=== PATIENT | female | born 1955 | race Caucasian/White ===

== ENCOUNTER 2018-06-01 10:05 | Outpatient (CLI) | payer MEDICARE, OTHER | END 2018-06-01 10:06 | disposition home or self-care (01) | LOC: BICMAMMO 10:05 | PROVIDERS: ATTEND Internal Medicine Rheumatology | DX: M81.0 Age-related osteoporosis without current pathological fracture (principal); M85.89 Other specified disorders of bone density and structure, multiple sites | CPT/HCPCS: 77080 ==

== ENCOUNTER 2018-07-10 15:38 | Emergency (ER) | payer MEDICARE, OTHER ==
[2018-07-10 16:06] LABS: Hemoglobin 13.4 g/dL (12.0-16.0); Mean Corpuscular HGB CONC 32.1 g/dL (32.0-36.0); Mean Corpuscular Hemoglobin 34.7 pg (27.0-31.0); Mean Platelet Volume 6.3 fL (7.4-10.4); Platelet Count 321 thou/uL (130-400); RBC Distribution Width 12.2 % (11.5-14.5); Red Blood Cell (RBC) Count 3.87 mill/uL (4.20-5.40); White Blood Cell (WBC) Count 16.5 thou/uL (4.8-10.8)
[2018-07-10 16:34] LABS: CKMB 1.6 ng/mL (0-6.6)
[2018-07-10 16:38] LABS: #Basophils 0.1 thou/uL (0.0-0.2); #Eosinphils 0.3 thou/uL (0.0-0.7); #Lymphocytes 2.5 thou/uL (1.20-3.40); #Monocytes 1.6 thou/uL (0.11-0.59); %Basophils 0.8 % (0.0-1.0); %Eosinophils 1.8 % (0.0-10.0); %Lymphocytes 14.9 % (21.0-51.0); %Monocytes 9.7 % (0.0-10.0); %Neutrophils 72.8 % (42.0-75.0); MDiff Complete? YES
[2018-07-10 16:39] LABS: Macrocytosis SLIGHT = 6-15 cells (100X) (0-5/hpf); PLT Morphology Comment Appears Adequate
[2018-07-10 16:40] LABS: Troponin I Less than 0.010 ng/mL (< 0.028)
[2018-07-10 16:48] LABS: ALT (SGPT) 19 U/L (8-55); AST (SGOT) 34 U/L (5-34); Albumin 3.7 g/dL (3.4-4.8); Alkaline Phosphatase 75 U/L (40-150); Anion Gap 13 mmol/L (10-20); BUN (Urea Nitrogen) 10 mg/dL (9.8-20.1); Bilirubin, Total 0.6 mg/dL (0.2-1.2); CK (CPK) 48 U/L (29-168); Calc. Creatinine Clearance 0 mL/min (70-130); Calcium 9.2 mg/dL (7.8-10.44); Carbon Dioxide 26 mmol/L (23-31); Chloride 100 mmol/L (98-107); Estimated GFR-MDRD 64; Globulin 3.8 g/dL (2.4-3.5); Glucose 162 mg/dL (80-115); Potassium 3.8 mmol/L (3.5-5.1); Protein, Total 7.5 g/dL (6.0-8.3); Sodium 135 mmol/L (136-145)
--- NOTE | 2018-07-10 16:51 | RAD ---
PORTABLE CHEST ONE VIEW: 07/10/2018 4:10 p.m. HISTORY: Chest pain. FINDINGS: The heart size is normal. The lungs are well expanded without focal areas of consolidation, pneumoth oraces, or pleural effusions. IMPRESSION: No radiographic evidence of acute cardiopulmonary process. POS: [facility]
[2018-07-10] MEDS ORDERED: Acetaminophen 500 MG TAB ONE (17:37)
[2018-07-10 19:33] LABS: Troponin I Less than 0.010 ng/mL (< 0.028)
== END 2018-07-10 19:47 | disposition home or self-care (01) ==
LOC: ERS 15:38
DX: M79.602 Pain in left arm (principal); R55 Syncope and collapse; E78.5 Hyperlipidemia, unspecified; Z87.891 Personal history of nicotine dependence; F41.9 Anxiety disorder, unspecified
CPT/HCPCS: 36415; 71045; 80053; 82553; 84484; 85025; 93005; 94760

== ENCOUNTER 2019-04-08 11:11 | Inpatient (IN) | payer MEDICARE, OTHER ==
[2019-04-08] MEDS ORDERED: Lorazepam 2 MG/ML VIAL ONE ×3 (11:35→18:14)
[2019-04-08] MEDS ORDERED: ISOVUE-370 76%-LOCM 1 ML ONE (11:44)
[2019-04-08] MEDS ORDERED: Iopamidol 370 76% 100 ML VIAL ONE (11:45)
[2019-04-08 12:04] LABS: Hemoglobin 12.5 g/dL (12.0-16.0); Mean Corpuscular HGB CONC 33.8 g/dL (32.0-36.0); Mean Corpuscular Hemoglobin 34.9 pg (27.0-31.0); Platelet Count 137 thou/uL (130-400); RBC Distribution Width 11.6 % (11.5-14.5); Red Blood Cell (RBC) Count 3.57 mill/uL (4.20-5.40)
[2019-04-08] MEDS ORDERED: Haloperidol Lactate 5 MG/ML VIAL ONE (12:10)
[2019-04-08 12:11] LABS: INR-International Normal Ratio 1.2; Prothrombin Time 15.4 SEC (12.0-14.7)
--- NOTE | 2019-04-08 12:17 | RAD ---
XR Chest 1 View Portable HISTORY: Fever, cough. COMPARISON: 07/10/2018 study FINDINGS: Heart size and mediastinum are within normal limits. The lungs are clear. No significant susi ny findings. IMPRESSION: Unremarkable supine chest.
[2019-04-08 12:19] LABS: ALT (SGPT) 10 U/L (8-55); AST (SGOT) 11 U/L (5-34); Albumin 3.4 g/dL (3.4-4.8); Alcohol Less than 10 mg/dL (Less than 10); Alkaline Phosphatase 104 U/L (40-150); Anion Gap 23 mmol/L (10-20); BUN (Urea Nitrogen) 8 mg/dL (9.8-20.1); Bilirubin, Total 0.8 mg/dL (0.2-1.2); Calc. Creatinine Clearance 0 mL/min (70-130); Calcium 8.1 mg/dL (7.8-10.44); Carbon Dioxide 23 mmol/L (23-31); Chloride 86 mmol/L (98-107); Estimated GFR-MDRD 78; Globulin 3.3 g/dL (2.4-3.5); Glucose 186 mg/dL (80-115); Potassium 3.4 mmol/L (3.5-5.1); Protein, Total 6.7 g/dL (6.0-8.3); Sodium 129 mmol/L (136-145)
[2019-04-08 12:21] LABS: Band 2 % (5-11); Lymphocytes 7 % (21-51); MDiff Complete? YES; Mean Platelet Volume 6.9 fL (7.4-10.4); Monocytes 3 % (0-10); Neutrophil 88 % (42-75); Platelet Morphology Comment Appears Adequate; White Blood Cell (WBC) Count 23.6 thou/uL (4.8-10.8)
[2019-04-08 12:29] LABS: Acetaminophen Less than 6.0 mcg/mL (10.0-30.0); Alcohol Less than 10 mg/dL (Less than 10); Salicylate Less than 8.0 mg/dL (15.0-30.0)
--- NOTE | 2019-04-08 12:56 | CT ---
CT Brain WO Con HISTORY: Altered mental status COMPARISON: None. FINDINGS: There is generalized ventricular and sulcal prominence. There are no signs of intracerebral hemorrhage or extra-axial fluid collections. The mastoid air cells are clear. There is mucosal changes within both maxillary sinuses and right ethmoid air cells. IMPRESSION: No acute intracranial abnormalities.
[2019-04-08 13:04] LABS: Protein, Urine (Dipstick) > or equal to 300 mg/dL (Neg-Trace)
[2019-04-08 13:07] LABS: Bilirubin Unable to Interpret (Negative); Blood, Urine Large (Negative); Clarity Opaque (Clear); Glucose, Urine (Dipstick) Unable to Interpret mg/dL (Negative); Leukocyte Large (Negative); Nitrite Unable to Interpret (Negative); Urobilinogen UNABLE TO INTERPRET mg/dL (0.2-1.0)
[2019-04-08 13:11] LABS: Amphetamine Not Detected (NotDetected); Barbiturates Screen Detected (NotDetected); Benzodiazepine Screen Not Detected (NotDetected); Cocaine Metabolite Screen Not Detected (NotDetected); Medtox Control Line Valid? VALID (VALID); Medtox Reader # READER 1; Methadone Not Detected (NotDetected); Methamphetamine Not Detected (NotDetected); Opiate Screen Not Detected (NotDetected); Oxycodone Screen Not Detected (NotDetected); Phencyclidine (PCP) Not Detected (NotDetected); THC/Cannabinoid Screen Not Detected (NotDetected); Tricyclic Screen Not Detected (NotDetected)
[2019-04-08] MEDS ORDERED: Sodium Chloride 0.9% 100 ML ONE (13:12)
[2019-04-08] MEDS ORDERED: Cefepime 2 GM VIAL ONE (13:12)
[2019-04-08 13:27] LABS: RBC/HPF GREATER THAN 50-TNTC HPF (0-3); WBC/HPF 21-50 HPF (0-3)
[2019-04-08 13:28] LABS: Bacteria/HPF Rare-Few HPF (None Seen); Hyaline Casts/LPF NONE SEEN LPF (0-3 Hyaline); Renal Epithelial 0-3 HPF (0-3); Squamous Epithelial 0-3 HPF (0-3); Transitional Epithelial 0-3 HPF (0-3)
--- NOTE | 2019-04-08 14:23 | CT ---
Exam: ABDOMEN CT WITHOUT CONTRAST PELVIC CT WITHOUT CONTRAST: HISTORY: Hematuria. FINDINGS: ABDOMEN CT: Lung bases are clear. Limited evaluation of the solid organs due to technique. Grossly no solid organ abnormality. Bilaterally no hydronephrosis, nephrolithiasis or perinephric fat stranding. Bilateral ureters have a normal caliber. No hydroureter, periureteral fat stranding or ureterolithiasis No gastrohepatic, retrocrural or periportal lymphadenopathy There is evidence of complex fluid tracking along both paracolic gutters. There is asymmetric abnorma l attenuation along the left iliopsoas complex. There is also abnormal fluid along the anterior mesentery. There is asymmetric edema involving the right abdominal rectus muscle. Limited evaluation of the alimentary canal by the lack of oral contrast. No evidence of high-grade susi wel obstruction or colonic obstruction. CT PELVIS: There is stranding of the presacral fat. There is abnormal attenuation and stranding of the perivesic ular region. Additionally, there is abnormal attenuation in the urinary bladder with attenuation coefficient of 25 Hounsfield units. There is abnormal fluid attenuation along both external iliac chains. There are no lytic or blastic lesions in the osseous structures. No evidence of a bony fracture. IMPRESSION: 1. Predominantly retroperitoneal complex fluid/possible hemorrhage. Etiology is uncertain. Possibilit y of a spontaneous retroperitoneal bleed or posttraumatic change is raised. 2. Abnormal attenuation within the urinary bladder in the perivesicular spaces. The possibility of h emorrhage is raised. Spontaneous bladder rupture is a consideration though a less favored alternative. 3. Further evaluation with postcontrast imaging is recommended. Results of study discussed with Dr. Elizondo. CODE CR. Transcribed Date/Time: 04/08/2019 2:29 PM
--- NOTE | 2019-04-08 15:27 | CT ---
CT ABDOMEN AND PELVIS: 04/08/2019 HISTORY: Hematuria. Abnormal noncontrast CT. TECHNIQUE: Multiple contiguous axial images were obtained in a CT of the abdomen and pelvis with IV contrast. C oronal reformats were performed. FINDINGS: Lower Chest: Within normal limits. Vessels: Normal caliber aorta Heart: Normal size. No pericardial fluid. ABDOMEN Portal vein: Patent. Gallbladder: No calcified gallstones. Normal caliber wall. Liver: Within normal limits. Pancreas: Within normal limits. Spleen: Within normal limits. Adrenals: Within normal limits. Kidneys: Within normal limits. Peritoneum: There is evidence of bilateral pericolic fluid. There is also fluid in the anterior low er abdominal mesentery, just deep to the rectus muscles. There is a small amount of fluid tracking along the left and right retroperitoneal region, anterior to both iliopsoas complexes. Bowel: Normal caliber. Mesentery and Retroperitoneum: No enlarged mesenteric or retroperitoneal lymph nodes. Abdominal Wall: Asymmetric edema involving the right abdominal rectus muscle. PELVIS Reproductive Organs: Complex fluid in the pelvis. Pelvis: Stranding of the perivesicular fat. Bladder: Asymmetric soft tissue attenuation along the base and right aspect of the urinary bladder. The possibility of a neoplastic process is raised. There is stranding of the urinary bladder, which may be due to bladder rupture, an infectious or inflammatory process, or posttraumatic change. Bones: Within normal limits. IMPRESSION: Redemonstration of complex fluid in the perivesicular region and retroperitoneum, as well as in the a nterior abdominal mesentery, just deep to the rectus muscles. Attenuation coefficient implies complex or hemorrhagic fluid. Etiology is uncertain; however, given abnormal attenuation of the righ t aspect of the urinary bladder, a vesicular pathology is favored. Etiology may be due to an infectious or inflammatory process. Spontaneous bladder rupture from neoplasm or trauma are differen tial considerations. Urology consultation is recommended Results of study discussed with Dr. Elizondo on 04/08/2019 at 3:24 p.m. CODE CR Transcribed Date/Time: 04/08/2019 4:05 PM
[2019-04-08 16:23] LABS: Lactic Acid 2.7 mmol/L (0.5-2.2)
[2019-04-08 16:32] LABS: Troponin I Less than 0.010 ng/mL (< 0.028)
--- NOTE | 2019-04-08 17:35 | CT ---
Exam: Pelvic CT scan with IV contrast: Exam includes some delayed images with contrast in the urinary bladder. Again noted is extensive extraperitoneal fat stranding and heterogeneous fluid density within the pel vis and extending into the lower abdominal retroperitoneal regions. The density of this fluid does not appear to be simple ascitic fluid raising concern for complicated fluid such as hemorrhage. There is some minimal thickening and altered attenuation in the inferior rectus muscles. This is in part related to the extraperitoneal fluid density which overlies this region. There is some minimal nonspe cific subcutaneous fat stranding in the anterior soft tissues. These images confirm the presence of a urinary bladder mass superiorly and on the right lateral aspec t of the bladder. There is no evidence for contrast extravasation from the bladder seen. IMPRESSION: Evidence for a superior and right-sided urinary bladder mass. No evidence for contrast extravasation from the urinary bladder. Persistent extensive extraperitoneal and retroperitoneal fluid in the pelvis and extending up into the lower abdomen retroperitoneal spaces, nonspecific but certainly the possibility that this represents extraperitoneal hemorrhage must be of primary concern. Findings discussed with Dr. Elizondo in the emergency room at 5:30 PM CODE CR
[2019-04-08] MEDS ORDERED: Lorazepam 2 MG/ML VIAL SLOW IVP PRN (18:54)
[2019-04-08] MEDS ORDERED: Acetaminophen 650 MG Suppository PR PRN (18:56)
[2019-04-08] MEDS ORDERED: Thiamine HCl 200 MG/2 ML VIAL IM SCH (19:00)
[2019-04-08 19:05] LABS: Folate (Folic Acid) 15.9 ng/mL (7.0-31.4)
[2019-04-08 19:11] LABS: Troponin I 0.019 ng/mL (< 0.028)
[2019-04-08 19:12] LABS: #Basophils 0.1 thou/uL (0.0-0.2); #Eosinphils 0.1 thou/uL (0.0-0.7); #Lymphocytes 3.4 thou/uL (1.20-3.40); #Monocytes 2.4 thou/uL (0.11-0.59); #Neutrophils 21.2 thou/uL (1.40-6.50); %Basophils 0.2 % (0.0-1.0); %Eosinophils 0.3 % (0.0-10.0); %Lymphocytes 12.7 % (21.0-51.0); %Monocytes 8.9 % (0.0-10.0); Band 7 % (5-11); Hemoglobin 11.7 g/dL (12.0-16.0); Lymphocytes 16 % (21-51); MDiff Complete? YES; Macrocytosis SLIGHT = 6-15 cells (100X) (0-5/hpf); Mean Corpuscular HGB CONC 33.6 g/dL (32.0-36.0); Mean Corpuscular Hemoglobin 34.3 pg (27.0-31.0); Mean Platelet Volume 7.1 fL (7.4-10.4); Monocytes 3 % (0-10); Neutrophil 73 % (42-75); Platelet Count 91 thou/uL (130-400); Platelet Morphology Comment Appears Decreased; Polychromasia SLIGHT = 2-3 cells (100X) (0-2/hpf); RBC Distribution Width 11.6 % (11.5-14.5); Red Blood Cell (RBC) Count 3.42 mill/uL (4.20-5.40); White Blood Cell (WBC) Count 27.1 thou/uL (4.8-10.8)
--- NOTE | 2019-04-08 21:51 | HP ---
CHIEF COMPLAINT ON ADMISSION: Altered mental status due to sepsis, UTI, probable ruptured viscus with hematuria and GI bleed. HISTORY OF PRESENT ILLNESS: The patient is a 63-year-old female, who with her drinks rather heavily on a frequent basis. There has been a significant loss in her life and this is how she has been dealing with it for quite some time. She was most recently seen in my office 2 days ago and placed on Zoloft to help her find an alternative to treating her grief. On the day of admission, she was found unarousable by her . They were both intoxicated when they went to bed, so he is not aware of any activity during the night including possible falls or trauma. He simply could not arouse her this morning, she was very confused on arousal. He called his daughter who came up and confirmed that the patient was very confused and combative. She was quickly brought to [facility] Emergency Room for further evaluation. On arrival, she was found to [place] [id number] , and she required Ativan IV to begin the process of examination. The patient has since been found to have a complex fluid throughout her abdomen with irregularities of the bladder that may indicate possible rupture and she was also found to have blood in her urine and stool. Drug screen is only significant for the Ativan given to her in the emergency room. She has remained confused and febrile while in the ER. Cultures have been taken and antibiotics have been started. Urology and Surgery are already aware of her case and have been consulted. She will be placed in ICU as we further evaluate this patient. A urogram is scheduled to confirm the possibility of bladder wall rupture. PAST MEDICAL HISTORY: Significant for the aforementioned alcoholism, hyperlipidemia, anxiety and noncompliance medically. PAST SURGICAL HISTORY: Includes hysterectomy, D and C. PSYCHIATRIC HISTORY: Includes the anxiety aforementioned and alcohol abuse, and probable depression. SOCIAL HISTORY: She is . Former tobacco smoker. Continues to use at least a 6-pack and 2 to 3 mixed drinks daily. ALLERGIES: SHE HAS NO KNOWN DRUG ALLERGIES. MEDICATIONS: Her medications are only the Zoloft recently at 50 mg a day, started 3 days ago. REVIEW OF SYSTEMS: CONSTITUTIONAL: At the time of admission, she arrives confused with obvious fever. Prior to this morning, there were no complaints of malaise, although she had had some intermittent back pain and states she told her daughter that she had probably passed a kidney stone in the recent few days. HEENT: No drainage from eyes, ears, nose, or throat or sores or lesions noted. CHEST: Denies cough or shortness of breath. CARDIOVASCULAR: Denies palpitations or chest pain. GI: Denies nausea, vomiting, or diarrhea. : Recently admitted to difficulty with urination and blood in her urine. MUSCULOSKELETAL: Has been complaining recently of back pain and sciatic pain going down her left leg. NEUROLOGIC: The aforementioned sciatic left leg pain that has been noted and at this admission, has altered mental status. SKIN: No acute rashes or lesions. PHYSICAL EXAMINATION: VITAL SIGNS: At admission, blood pressure is 128/69, pulse 130, respirations 22 , temperature 100.2, and O2 saturation at 100% on room air. GENERAL: This is a well-developed, well-nourished, elderly female, who is currently arousable, but not responsive, will not follow directions, in fact, is resistant to any movement. HEENT: Normocephalic, atraumatic. Pupils are equal, round, and reactive to light. Nares and pharynx are clear. NECK: Supple. CHEST: Clear to auscultation. BREASTS: Deferred. HEART: Regular rate and rhythm. Tachycardic. ABDOMEN: Protuberant, but grossly nontender to exam and soft. Unable to appreciate organomegaly. BACK: Negative to CVA tenderness. : Normal external female. EXTREMITIES: Without clubbing, cyanosis, or edema. Demonstrated normal range of motion, symmetric muscular tone development noted. SKIN: Without acute lesions, but very hot and dry. NEUROLOGIC: Sensory exam is grossly intact by exam. Mental status is altered. Will not follow directions. LABORATORY DATA: Lab work thus far shows WBCs 23.6, hemoglobin 12.5, hematocrit 37, MCV elevated as expected at 103, MCH elevated at 34.9, MPV elevated at 6.9, platelets of 137. The differential shows 88% neutrophils with 2 bands and 7 lymphocytes. Chemistry shows sodium at 129, potassium 3.4, chloride 86, CO2 23 , BUN 8, creatinine 0.75 with a GFR of 78, glucose at 186, lactic acid elevated at 6. Calcium normal at 8.1. Liver functions normal. Troponins normal. TSH normal at 1.9. Albumin-globulin ratio is slightly low. The PT is elevated at 15.4, INR 1.2, APTT 29. Urinalysis shows obvious blood with wbc's 25-50. Toxicology positive for the benzos given to settle her down. Blood alcohol less than 10. Chest x-ray unremarkable. CT of the head unremarkable. CT of the abdomen showing complex fluid in the retroperitoneal space with irregularity in shape where the bladder is located. The fluid is diffuse to the abdomen just even deep to the rectus muscles anteriorly. No obvious free air. Concern is for a ruptured bladder. ASSESSMENT: 1. Altered mental status. 2. Sepsis. 3. Urinary tract infection. 4. Concern for ruptured viscus in the pelvis. 5. Hyponatremia. 6. Ongoing alcoholism, will need to prevent delirium tremens. 7. Gastrointestinal bleed. 8. Hematuria. PLAN: Plan will be ICU admission. A uro-cystogram is in progress at the present. If her bladder is rupture, then she will be seen by Dr. Yap and probably have that repaired. In the meantime, cultures have been taken, antibiotics will be continued. She will be continued to be given supportive care with fluids and antibiotics. Mental status will be monitored with IV Ativan for the altered mental status since it can be a complication of alcohol withdrawal, but there has been no observed seizure activity. Should that occur, low dose of Valium may be needed as well as protection of her airway with intubation. We will watch her closely in ICU for all these possible complications. Job ID: [id number] MTDD
[2019-04-08] MEDS ORDERED: Cefepime 2 GM in Sodium Chloride 0.9% 100 ML IVPB SCH (22:00)
[2019-04-08 22:17] LABS: #Basophils 0.1 thou/uL (0.0-0.2); #Lymphocytes 4.1 thou/uL (1.20-3.40); #Monocytes 2.4 thou/uL (0.11-0.59); #Neutrophils 15.2 thou/uL (1.40-6.50); %Basophils 0.5 % (0.0-1.0); %Eosinophils 0.2 % (0.0-10.0); %Lymphocytes 18.9 % (21.0-51.0); %Monocytes 11.1 % (0.0-10.0); %Neutrophils 69.3 % (42.0-75.0); Hemoglobin 9.6 g/dL (12.0-16.0); Mean Corpuscular HGB CONC 34.3 g/dL (32.0-36.0); Mean Corpuscular Hemoglobin 35.1 pg (27.0-31.0); Mean Platelet Volume 6.7 fL (7.4-10.4); Platelet Count 89 thou/uL (130-400); RBC Distribution Width 11.7 % (11.5-14.5); Red Blood Cell (RBC) Count 2.74 mill/uL (4.20-5.40); White Blood Cell (WBC) Count 21.9 thou/uL (4.8-10.8)
[2019-04-09] MEDS: Lorazepam 2 MG/ML VIAL SLOW IVP PRN ×5 (00:53→20:40)
[2019-04-09] MEDS: Acetaminophen 650 MG Suppository PR SCH ×4 (00:54→20:45)
--- NOTE | 2019-04-09 01:24 | CON ---
DATE OF CONSULTATION: 04/08/2019 REASON FOR CONSULTATION: 1. Gross hematuria. 2. Changes around the patient's bladder on CT scan. 3. Rule out bladder rupture. 4. Gross hematuria. HISTORY OF PRESENT ILLNESS: Ms. Rosette Chance is a 63-year-old white female, who presented through the emergency department today due to a combination of gross hematuria and altered mental status. The patient apparently was in her normal state last night, but woke up this morning with altered mental status. The patient's family reports that she has never acted this way previously. Essentially, her entire supportive family including her are available for discussion today and confirm the details of her change in mental status. I was consulted initially due to concern for a bladder rupture. I did recommend a CT cystogram study be performed and this does not show a rupture of the patient's bladder. REVIEW OF SYSTEMS: The patient is not able to participate in the review of systems. PAST MEDICAL HISTORY: 1. Hyperlipidemia. 2. Elevated serum cholesterol. 3. Probable alcoholism with reporting consumption of 7 alcoholic beverages per day indicating about 49 or more units of alcohol per week. 4. Former smoker with 50-pack years of smoking. PSYCHIATRIC HISTORY: Positive for anxiety, treated with Zoloft. SOCIAL HISTORY: The patient per consumes 7 alcoholic beverages per day. The patient is a former cigarette smoker with about 50 pack years of total consumption. ALLERGIES: NONE. CURRENT MEDICATION LIST: Would include Zoloft in the past. PHYSICAL EXAMINATION: VITAL SIGNS: The patient had a temperature of 100.2 in the emergency department today. Current temperature is not recorded. Pulse rate is 107 at rest and in the 130s when agitated. Blood pressure currently 132/85, O2 saturation 99%. GENERAL: This is an agitated and combative patient, currently in restraints in her ICU bed. She does not appear to know where she is or follow proper commands. She is a little difficult to settle down and is on Ativan at present. HEAD, EYES, EARS, NOSE, AND THROAT: Extraocular movements are intact. Sclerae anicteric. Oropharynx is clear. NECK: Supple, LUNGS: Clear to auscultation bilaterally. CARDIAC: There is a tachycardic rate, which appears regular. ABDOMEN: Soft and nontender. There are no tender areas on percussion of the patient's abdomen. There is no back pain on either side. PELVIC: Indwelling Pratt catheter is draining bloody urine. This is not overly bloody, but is obvious that the patient has blood in her urine, color is about a deep white color. There does not appear to be any clots in the drainage line. EXTREMITIES: Appear within normal limits. LABORATORY STUDIES: The patient's white count elevated currently 21,900, hemoglobin is 9.6 with hematocrit of 28.1 this is after hydration, the platelet count is 89, suggestive of some baseline liver disease. The patient here has relative neutrophilia earlier in the day with 78% neutrophils. The ANC was elevated at 21.2 at the initial ANC evaluation and 15.2 after a little more hydration. Serum chemistries show an initial lactic acid at 2.7, magnesium 0.9. Urinalysis showed urine red with opaque coloration to it. Urine gravity of 1.026, indicating a degree of dehydration, a large amount of blood present, large amount of leukocyte esterase, greater than 50 red cells per high-power field, and 21 to 50 white cells, suggestive of an infection. However, rare bacteria were observed. CT scan of the abdomen and pelvis was performed at 1338 this afternoon showing inflammatory changes around the patient's bladder, worrisome for a possible rupture. A followup CT examination is performed including a pelvis CT with the addition of Pratt catheter contrast. This study shows no evidence of rupture and an intact bladder wall. 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 These could reflect changes associated with a high-grade cystitis or other inflammatory process, possibly from the colon or bowel. ASSESSMENT AND PLAN: 1. Bladder lining filling defects seen on CT cystogram study from today. These most likely Ta or T1 bladder tumors and are not an actual emergency at this point. The patient appears to be sick with systemic illness, although this could arise from obstruction of the ureter from tumor, which is quite possible in this patient's case given her smoking history or from an upper tract tumor. There is an oral history of extensive NSAID use for treatment of migraine headaches, which has been recent, which could result in papillary necrosis, also resulting in blood clot and kidney tissue obstruction of the ureters resulting in subsequent infection. Additionally, the patient could simply have cystitis. Inflammatory changes near the bladder could also be caused by the intraabdominal issues such as ruptured diverticulitis or colon cancer or other cause. 2. ID concerns, broad-spectrum antibiotic coverage is indicated in this patient's case as has been ordered by Dr. Sergey Burgos. 3. The patient's acute issues have to do with sepsis and these are probably not due simply to urologic origin given the inflammatory changes overlying the bladder. I think in this patient's case, she probably has an intraabdominal process and possibly upper tract a urinary tract infection given the presentation. This appears to be in a patient with probably more than one thing going on. 4. Treatment of probable bladder tumor lesions. The patient is no longer febrile. Evaluation of the patient's bladder cystoscopically can be performed. This will probably be more toward the end of this patient's admission than immediately within the next 24 hours. Over 70 minutes of initial consultation and assessment time was spent in the evaluation and assessment of this patient exclusive of any procedures performed. Job ID: [id number]
[2019-04-09 04:31] LABS: #Basophils 0.1 thou/uL (0.0-0.2); #Eosinphils 0.1 thou/uL (0.0-0.7); #Lymphocytes 4.7 thou/uL (1.20-3.40); #Monocytes 3.2 thou/uL (0.11-0.59); #Neutrophils 15.6 thou/uL (1.40-6.50); %Basophils 0.5 % (0.0-1.0); %Eosinophils 0.4 % (0.0-10.0); %Lymphocytes 19.6 % (21.0-51.0); %Monocytes 13.6 % (0.0-10.0); %Neutrophils 65.8 % (42.0-75.0); Hemoglobin 9.7 g/dL (12.0-16.0); Mean Corpuscular HGB CONC 33.4 g/dL (32.0-36.0); Mean Corpuscular Hemoglobin 35.1 pg (27.0-31.0); Platelet Count 98 thou/uL (130-400); RBC Distribution Width 11.7 % (11.5-14.5); Red Blood Cell (RBC) Count 2.76 mill/uL (4.20-5.40); White Blood Cell (WBC) Count 23.7 thou/uL (4.8-10.8)
[2019-04-09 04:53] LABS: Anion Gap 12 mmol/L (10-20); BUN (Urea Nitrogen) 8 mg/dL (9.8-20.1); Calc. Creatinine Clearance 93 mL/min (70-130); Calcium 7.2 mg/dL (7.8-10.44); Carbon Dioxide 22 mmol/L (23-31); Chloride 99 mmol/L (98-107); Estimated GFR-MDRD Greater than 90; Glucose 96 mg/dL (80-115); Potassium 3.3 mmol/L (3.5-5.1); Sodium 130 mmol/L (136-145)
[2019-04-09] MEDS: Thiamine HCl 200 MG/2 ML VIAL IM SCH (09:27)
[2019-04-09] MEDS: Multivitamins, Adult 10 ML in Sodium Chloride 0.9% 500 ML IV SCH (10:17)
[2019-04-09 13:06] LABS: Magnesium 1.1 mg/dL (1.6-2.6)
[2019-04-09 13:16] LABS: Phosphorus 1.9 mg/dL (2.3-4.7)
[2019-04-09] MEDS ORDERED: Potassium Chloride 40 MEQ in Premix Bag 1 BAG IVPB PRN (13:26)
[2019-04-09] MEDS ORDERED: Potassium Phosphate 15 MMOL in Sodium Chloride 0.9% 250 ML 250 ML IV PRN (13:26)
[2019-04-09] MEDS ORDERED: CCU ELECTROLYTE REPLACEMENT PROTOCOL FS PRN (13:26)
[2019-04-09] MEDS ORDERED: PHOS-NAK 1 PKT PACK PO PRN (13:26)
[2019-04-09] MEDS ORDERED: Potassium Chloride 40 MEQ in Sodium Chloride 0.9% 250 ML 250 ML IVPB PRN (13:26)
[2019-04-09] MEDS ORDERED: Potassium Phosphate 12 MMOL in Sodium Chloride 0.9% 250 ML 250 ML IV PRN (13:26)
[2019-04-09] MEDS ORDERED: Magnesium 2 GM/50 ML 2 GM in Premix Bag 1 BAG IVPB PRN (13:26)
[2019-04-09] MEDS ORDERED: Potassium Phosphate 9 MMOL in Sodium Chloride 0.9% 100 ML IVPB PRN (13:26)
[2019-04-09] MEDS ORDERED: Magnesium Oxide 400 MG TAB PO PRN (13:26)
[2019-04-09] MEDS ORDERED: Potassium Chloride 20 MEQ TAB PO PRN (13:26)
[2019-04-09] MEDS: NS 0.9% w/ 20 MEQ KCL 1,000 ML IV SCH (13:31)
--- NOTE | 2019-04-09 17:21 | CON ---
DATE OF CONSULTATION: 04/09/2019 HISTORY OF PRESENT ILLNESS: Ms. Chance is a 63-year-old female. She was admitted yesterday with confusion. Her mental status has improved according to the son and her nurse. She was interactive, whereas reportedly she was obtunded yesterday. A CT scan of her abdomen and pelvis showed retroperitoneal irregularities and abnormalities around and in the bladder. Followup CT showed a bladder mass, but no leak. There are changes by reviewing the CT that are suggestive perhaps of some retroperitoneal bleeding and fluid anterior of the lower abdominal mesentery just deep to the rectus muscles. No procedures have been performed yet to evaluate the bladder. PAST MEDICAL HISTORY: Remarkable for lipid disorder, anxiety, hysterectomy, D and C, and heavy alcohol use as well as depression. SOCIAL HISTORY: She drinks heavily every evening according to admission notes as well as the son and has been a smoker. FAMILY HISTORY: Negative for lung disease in early age. REVIEW OF SYSTEMS: 10 point review of systems completed, not accurately obtainable. PHYSICAL EXAMINATION: GENERAL: She will open her eyes. She will nod yes or no. She denies discomfort. VITAL SIGNS: Heart rate is 93, blood pressure is 118/75, respiratory rate is 18 , and oximetry is 98. HEENT: Pupils are equal. Sclerae are anicteric. NECK: Supple. No lymphadenopathy. LUNGS: Clear. HEART: Regular rhythm. S1 and S2 are normal. ABDOMEN: Soft and surprisingly nontender. EXTREMITIES: Without clubbing, cyanosis, or edema. NEURO: Nonfocal, although she is very slow to answer questions. She moves all her extremities equally. LABORATORY DATA: White count 23.7, hemoglobin 9.7, and platelets 98,000. Sodium 130, potassium 3.3, chloride 99, bicarb 22, BUN 8, and creatinine 0.56. INR is 1.2. Urinalysis was remarkable for massive proteinuria, [id number]-count red cells, 21 to 50 white cells. Drug screen was positive for barbiturates. Cultures are no growth so far. IMPRESSION AND PLAN: Encephalopathy that is improving of unclear etiology. She was drinking the night before in the morning, where she was noted to have an altered mental status. Therefore, alcohol withdrawal confusion is unlikely. She does appear to be clinically improving. With regard to her abdominal findings, I cannot simply explain the retroperitoneal abnormalities nor the other abnormalities behind the rectus muscles unless one believes that there was at some point, some perforation of the bladder with hemorrhage. She does not clinically appear to have an exam consistent with peritonitis. I agree with broad antimicrobial therapy. It would seem that a cystoscopy would be a possible next step. We will follow while she is in the critical care unit. This is a 70 minute consult, with greater than 50% of time spent on unit coordinating care. Job ID: [id number] MTDD
[2019-04-09] MEDS: Cefepime 2 GM in Sodium Chloride 0.9% 100 ML IVPB SCH (20:16)
[2019-04-09] MEDS ORDERED: Prevnar 13-Val Conj/PF 0.5 ML SYRINGE IM ONE (21:00)
[2019-04-10] MEDS: NS 0.9% w/ 20 MEQ KCL 1,000 ML IV SCH ×5 (02:19→20:23)
[2019-04-10] MEDS: Cefepime 2 GM in Sodium Chloride 0.9% 100 ML IVPB SCH ×3 (02:19→18:58)
[2019-04-10 04:44] LABS: #Basophils 0.1 thou/uL (0.0-0.2); #Eosinphils 0.6 thou/uL (0.0-0.7); #Lymphocytes 3.6 thou/uL (1.20-3.40); #Monocytes 2.5 thou/uL (0.11-0.59); #Neutrophils 17.1 thou/uL (1.40-6.50); %Basophils 0.3 % (0.0-1.0); %Eosinophils 2.3 % (0.0-10.0); %Lymphocytes 15.1 % (21.0-51.0); %Monocytes 10.6 % (0.0-10.0); %Neutrophils 71.6 % (42.0-75.0); Hemoglobin 11.2 g/dL (12.0-16.0); Mean Corpuscular HGB CONC 34.9 g/dL (32.0-36.0); Mean Platelet Volume 6.5 fL (7.4-10.4); Platelet Count 123 thou/uL (130-400); RBC Distribution Width 11.8 % (11.5-14.5); White Blood Cell (WBC) Count 23.9 thou/uL (4.8-10.8)
[2019-04-10 05:37] LABS: Anion Gap 18 mmol/L (10-20); BUN (Urea Nitrogen) 4 mg/dL (9.8-20.1); Calc. Creatinine Clearance 106 mL/min (70-130); Calcium 6.8 mg/dL (7.8-10.44); Carbon Dioxide 19 mmol/L (23-31); Chloride 99 mmol/L (98-107); Estimated GFR-MDRD Greater than 90; Glucose 67 mg/dL (80-115); Magnesium 1.5 mg/dL (1.6-2.6); Sodium 133 mmol/L (136-145)
[2019-04-10 05:43] LABS: Phosphorus 1.4 mg/dL (2.3-4.7); Potassium 2.7 mmol/L (3.5-5.1)
--- NOTE | 2019-04-10 07:51 | CON ---
DATE OF CONSULTATION: 04/09/2019 DATE OF CONSULTATION REQUEST: 04/08/2019. INITIAL REASON FOR CONSULTATION: 1. Gross hematuria. 2. Changes around the patient's bladder on CT scan. 3. Rule out bladder rupture. 4. Gross hematuria. 5. Previous findings of probable bladder mass lesions suggestive of TA or T1 lesions. 6. Inflammatory changes around the patient's bladder. 7. No evidence of bladder rupture. BRIEF HISTORY: Ms. Rosette Chance is a 63-year-old white female who presented to the emergency department on 04/08/2019, due to a combination of gross hematuria and an altered mental status. She apparently was in her normal state on 04/07/2019 and went to bed, woke up in the morning with altered mental status. The patient does have heavy alcohol consumption in the range of 50 alcohol units per week. She had very badly altered mental status yesterday on 04/08/2019, and was not responsive to questioning. Today, she is awake and alert. The patient does have a little bit of poor recall of past events, but otherwise is seemingly at her normal baseline per family. She is being evaluated today by Dr. Wilkerson among other physicians. The patient has some inflammatory changes around her bladder and in the rectus muscle belly as well as other areas of her lower abdomen. There is no clear history of having received blows to the lower abdomen, but the patient does not have a good recall of any events. She was apparently found down at home. PHYSICAL EXAMINATION: VITAL SIGNS: The patient's heart rate is in the 99-100 range today, blood pressure is 112/68. She has remained afebrile throughout the day. Current temperature 98.5. HEAD, EYES, EARS, NOSE, AND THROAT: Extraocular movements are intact. Sclerae anicteric. Oropharynx is clear. NECK: Supple. LUNGS: Clear to auscultation bilaterally. CARDIAC: There is a regular or nearly regular rate at the present time. The rhythm is regular as well. ABDOMEN: Soft and nontender superior to the umbilicus. Below the umbilicus, the patient seems to have some difficulty and tenderness in the area of the rectus muscle bellies. She has used her arms to raise herself up from a supine position. She does not have bruising on the lower abdomen to suggest an injury from blows to the lower abdomen. The patient does have bruising around the insertion sites of the IVs and other access points, but otherwise appears to be without injury. The lower abdomen is otherwise nontender. Percussion does not reveal significant increased tenderness in either quadrants. BACK: Without evidence of tenderness as well, suggesting there is no upper tract process. : A Pratt catheter remains in place and is producing urine with a white zinfandel coloration. LABORATORY STUDIES: The patient's white count today was 23.7. The left shift has resolved at 65.8%. The ANC remains elevated at 15.6. Hemoglobin is 9.7 with hematocrit of 29. This is reduced from the admission values of 12.5 and 37, suggesting a bleed. Hydration may also explain the patient's apparent drop in hematocrit as if the patient is adequately dehydrated at home. ASSESSMENT AND PLAN: 1. CT finding of bladder wall abnormalities. These most likely represent TA or T1 tumors in the patient. These are low-grade lesions, which by definition are not muscle invasive. I am recommending a transurethral resection of bladder tumor and I have her scheduled for this on Tuesday at 11:30 a.m. 2. Lower abdominal edema. It is not clear what position the patient was found in, if she was in a down position dehydrated for long enough. This could result in muscular injury and inflammatory response. She does not seem to have any contusions or bruises to the lower abdomen, so I do not think her lower abdominal findings are due to that. She does have an elevated white count, which persist to today, which suggest an infectious process. Elevated white count is not indicative of bladder tumor issues. The patient did have an adequate CT study that was performed with adequate volume of contrast and there was no evidence of extravasation essentially ruling out a bladder rupture. I would expect even a small bladder rupture within the last 24 hours to show up on a CT cystogram. Job ID: [id number]
[2019-04-10] MEDS ORDERED: ISOVUE-370 76%-LOCM 1 ML ONE (07:55)
[2019-04-10] MEDS: Magnesium Oxide 400 MG TAB PO PRN ×2 (09:15→17:53)
[2019-04-10] MEDS: Thiamine HCl 200 MG/2 ML VIAL IM SCH (09:20)
[2019-04-10] MEDS: PHOS-NAK 1 PKT PACK PO PRN ×2 (09:20→17:53)
--- NOTE | 2019-04-10 13:45 | PRG ---
DATE OF SERVICE: 04/10/2019 SUBJECTIVE: Rosette Chance is tentatively on schedule for cystoscopy tomorrow. OBJECTIVE: VITAL SIGNS: Heart rates in the 90s, blood pressure 113/69, respiratory rates in the teens to 20s. GENERAL: She is sitting in a chair this morning when I saw her in no distress. She could speak in a complete sentence. I met with the and answered all of his questions. She is not on pressors. Intake and output -205 mL. LUNGS: Clear. HEART: Regular rhythm. ABDOMEN: Soft and nontender. EXTREMITIES: Without asymmetry. LABORATORY DATA: White count 23.9, hemoglobin 11.2, platelets 123,000. Sodium 133, potassium 2.7, chloride 99, bicarb 19, BUN 4, and creatinine 0.49. Cultures remain negative. IMPRESSION: 1. Probable bladder tumor. 2. Encephalopathy of unclear etiology. 3. Retroperitoneal and abdominal findings ? suggestive of a bladder perforation hemorrhage. 4. History of heavy alcohol use. 5. Hypokalemia. 6. Hypophosphatemia and hypomagnesemia. These need to be replaced. 7. Borderline low albumin on presentation. She is stable to transfer out of the critical care unit in my opinion. Mental status has returned to normal according to her in her exam and vital signs would meet criteria for moving to a medical bed for surgical bed. Job ID: [id number]
[2019-04-10] MEDS: Multivitamins, Adult 10 ML in Sodium Chloride 0.9% 500 ML IV SCH (13:54)
[2019-04-10] MEDS ORDERED: Sodium Bicarb 50 MEQ/50 ML VIAL ONE (16:35)
--- NOTE | 2019-04-10 16:53 | PQF ---
SAE GARCIA MICHAEL E MD [id number] CLINICAL DOCUMENTATION IMPROVEMENT CLARIFICATION FORM: ICD-10 Updated PLEASE DO AN ADDENDUM TO THE PROGRESS NOTE WITH ANY DOCUMENTATION UPDATES OR ADDITIONS AND CARRY THROUGH TO DC SUMMARY. THANK YOU. DATE: 04/10/19 ATTN:DR. Giuliana COSTELLO Please exercise your independent, professional judgment in responding to the clarification form. Clinical indicators are provided on the bottom of this form for your review. Please check appropriate box(s): Encephalopathy: Type: [ x ] Acute [ ] Subacute [ ] Chronic Etiology: [ ] Hypertensive [ ] Metabolic [ ] Toxic [ ] Hepatic with Coma [ ] Hepatic w/o Coma [ ] Hypoxic [ x ] Septic [ ] Drug induced: [ ] Other diagnosis [ ] Unable to determine In addition, please specify: Present on Admission (POA): [ x ] Yes [ ] No [ ] Unable to determine For continuity of documentation, please document condition throughout progress notes and discharge summary. Thank You. CLINICAL INDICATORS - SIGNS / SYMPTOMS / LABS 04/08 ED PHYSICIAN DX: ALTERED MENTAL STATUS 04/08 H & P([facility]) CHIEF COMPLAINT ON ADMISSION: ALTERED MENTAL STATUS DUE TO SEPSIS; ASSESSMENT: 1). ALTERED MENTAL STATUS. 04/09 CONSULT ([place]) IMPRESSION AND PLAN: ENCEPHALOPATHY THAT IS IMPROVING OF UNCLEAR ETIOLOGY. SHE WAS DRINKING THE NIGHT BEFORE IN THE MORNING, WHERE SHE WAS NOTED TO HAVE AN ALTERED MENTAL STATUS. 04/10 PN ([place]) IMPRESSION: 2) ENCEPHALOPATHY OF UNCLEAR ETIOLOGY RISK: HX OF ALCOHOL ABUSE( PN [place]) DX OF SEPSIS (H & P) [facility] TREATMENT: SERIAL LABS IV FLUIDS:(03/10-PRESENT) MAXIPIME IV (03/10-PRESENT) OXYGEN THERAPY THANK YOU! HANSA (This form is maintained as a part of the permanent medical record) 2014 [employer]. All Rights Reserved FRANCISCO JAVIER [email or web address] [phone] MTDD
--- NOTE | 2019-04-10 17:12 | CT ---
EXAM: CTA of the abdomen, pelvis, and bilateral lower extremities HISTORY: Pain in the lower extremities and red feet COMPARISON: None TECHNIQUE: Multiple contiguous axial images were obtained a CTA of the abdomen, pelvis, and bilateral lower extremities with contrast. Sagittal and coronal 3-D MIP reformats were performed. FINDINGS: Liver: Unremarkable. Gallbladder: Unremarkable. Kidneys: Unremarkable. Adrenal glands: Unremarkable. Spleen: Unremarkable. Pancreas: Unremarkable. Bowel: Unremarkable. Reproductive organs :Unremarkable. Retroperitoneum: No lymphadenopathy Bones: Degenerative changes in the spine. Pelvis: A Partt catheter is seen within the urinary bladder which is decompressed. Stranding changes are seen surrounding the urinary bladder. Inferior thorax: Trace bilateral pleural effusions with adjacent atelectasis. Abdominal aorta. Normal caliber without evidence of dissection or aneurysmal dilatation. Celiac trunk: Patent SMA: Patent JUAN: Patent Renal arteries: Bilateral single renal arteries without significant atherosclerotic disease Bilateral common iliac arteries: Unremarkable. Internal iliac arteries: Unremarkable. External iliac arteries: Unremarkable. Common femoral arteries: Unremarkable. Profunda femoral arteries: Unremarkable. Superficial femoral arteries: Unremarkable. Popliteal arteries: Unremarkable. Right lower extremity: The peroneal artery and posterior tibial artery are patent proximally. The ant erior tibial artery appears occluded along the midportion of the tibia/fibula. The distal posterior tibial artery is heavily calcified. Left lower extremity: The peroneal artery and posterior tibial artery are patent proximally. The ant erior tibial artery appears occluded along the midportion of the tibia/fibula. The distal posterior tibial artery is heavily calcified. IMPRESSION: 1. Bilateral 2 vessel runoff; otherwise no significant atherosclerotic disease. 2. Stranding changes surrounding the urinary bladder may be secondary to cystitis. Correlate with uri nalysis.
[2019-04-10] MEDS ORDERED: Sodium Bicarb 50 MEQ/50 ML Abboject 8.4% SYRINGE IVP SCH ×2 (17:15→17:35)
[2019-04-10] MEDS ORDERED: Sodium Bicarb 50 MEQ/50 ML VIAL IVP SCH (17:30)
--- NOTE | 2019-04-10 17:43 | CON ---
DATE OF CONSULTATION: 04/09/2019 REQUESTING PHYSICIAN: Dr. Sergey Burgos. HISTORY: A 63-year-old woman with history of chronic alcoholism. The patient was admitted with altered mental status and admitting diagnosis of sepsis. She has a history of recurrent urinary tract infection and this time presented with gross hematuria. Her workup on admission included a CT scan of the abdomen and pelvis, which was remarkable for some irregularities within the urinary bladder as well as some complex high-density fluid collection in the retroperitoneum as well as intraperitoneal space. No pneumoperitoneum is evident. The patient has no history of recent trauma. Currently, the patient is more alert and interactive and is able to give some history. She reports some vague abdominal pain, which is better this morning. She is currently having multiple loose bowel movements. She has no hematochezia or melena. She has had no fevers or chills during this admission. The patient's is at bedside and corroborates history. PAST MEDICAL HISTORY: Significant for chronic anxiety/depression, chronic alcoholism, and hyperlipidemia. PAST SURGICAL HISTORY: Pertinent for hysterectomy and D and C. SOCIAL HISTORY: The patient is , lives at home with her . She has a 20 pack years cigarette smoking history remotely. Currently does not smoke. She drinks 6 pack of beer per day and at times indulges on hard liquor as well. She has no illicit drug abuse history. PREHOSPITALIZATION MEDICATION: Includes sertraline 25 mg p.o. daily. ALLERGIES: NO KNOWN DRUG ALLERGIES. FAMILY HISTORY: Noncontributory for this patient's age. REVIEW OF SYSTEMS: Essentially unremarkable except as stated in past medical history and chief complaint. PHYSICAL EXAMINATION: GENERAL: This reveals a 63-year-old, normally developed woman, who is otherwise coherent and interactive and appears stated age. The patient is alert and oriented x3, appears to be in no acute distress at time of my evaluation. VITAL SIGNS: Current vital signs include blood pressure 116/77, pulse 102, respiratory rate is 17, temperature 98.2 degrees Fahrenheit, maximum temperature in last 24 hours is 98.5 degrees Fahrenheit. Oxygen saturation is 99% on room air. HEENT: Reveals normocephalic and atraumatic. The pupils are equal, round, reactive to light and accommodation. She has no jugular venous distention noted. HEART: Reveals regular rate and rhythm. No murmurs or gallops auscultated. LUNGS: Clear to auscultation bilaterally. Her breathing is regular and nonlabored. ABDOMEN: Soft and moderately tender to palpation, especially in the right lower greater than left lower quadrants. She has no rebound tenderness present. Liver and spleen are otherwise nonpalpable below costal margins. Bowel sounds are present and hyperactive. EXTREMITIES: Reveals 2+ radial and pedal pulses bilaterally. She has purplish discoloration of all toes as well as the plantar surface of the left foot. The left forefoot is also quite tender to palpation or touch. This is a new finding over the last few hours. NEUROLOGIC: Otherwise reveals no focal deficits present. LABORATORY FINDINGS: Today include a CBC with 23,900 white blood cells, hemoglobin and hematocrit are 11.2 and 32.0 respectively. Platelet count is 123,000. Last hemoglobin on record was in July of 2018, which was 13.4. Metabolic profile; sodium 133, potassium is 2.7, chloride is 99, bicarb is 19, BUN 4, creatinine 0.49, glucose 67, phosphorus is 1.4, magnesium is 1.5. I have personally reviewed the CT scan of abdomen and pelvis, which was obtained on 04/08/2019. I discussed the findings also with Radiology and this CT scan is consistent with bladder irregularities, for which Urology is evaluating the patient in consideration for transurethral bladder resection for bladder neoplasm. The abnormal densities of fluid in the left retroperitoneum as well as the anterior rectus sheath and within the mesentery in the pelvis are suspicious for that of blood. There is no pneumoperitoneum or evidence of intraabdominal abscess. There is no obstructive bowel pathology found. Stool was sent today for C diff and was antigen positive, but toxin negative. IMPRESSIONS: 1. Vague abdominal pain with abnormal fluid collections in the left retroperitoneum as well as intra-peritoneum. Etiology is uncertain. 2. Acute left foot pain, suspicious for a vascular event. Transthoracic echocardiography reveals no endocarditis or thrombus. 3. 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 4. Acute blood loss anemia, likely secondary to hemorrhagic cystitis plus spontaneous retroperitoneal hemorrhage, though no active bleeding is evident. RECOMMENDATIONS: There is no acute surgical indication for this patient at this time. I favor conservative management as the patient is actually physiologically getting better. Urology is planning a trip to the operating room today for transurethral resection of bladder, at which time, I propose diagnostic laparoscopy to evaluate the abnormal pelvic fluid collection. The above findings and plan have been discussed with the patient and her at bedside in the presence of her nurse. They both indicated understanding of information given. I have answered their questions. Thank you again, Dr. Burgos, for allowing me the opportunity to participate in the care of this patient. Job ID: [id number]
[2019-04-10] MEDS: Lorazepam 2 MG/ML VIAL SLOW IVP PRN (17:44)
[2019-04-10] MEDS ORDERED: Vancomycin HCl 25 MG/ML Oral PO SCH (18:00)
[2019-04-10] MEDS: metroNIDAZOLE 500 MG in Premix Bag 1 BAG IVPB SCH (20:17)
[2019-04-11] MEDS: Cefepime 2 GM in Sodium Chloride 0.9% 100 ML IVPB SCH ×3 (00:56→18:45)
--- NOTE | 2019-04-11 02:49 | CON ---
DATE OF CONSULTATION: 04/10/2019 DATE OF CONSULTATION REQUEST: 04/08/2019. REASON FOR CONSULTATION: 1. Gross hematuria. 2. Inflammatory changes around the patient's bladder on CT scan. 3. Rule out bladder rupture. 4. Gross hematuria. 5. Possible bladder mass lesions suggestive of TA or T1 lesions. 6. Inflammatory changes around the patient's bladder. 7. No evidence of bladder rupture. BRIEF HISTORY: Ms. Rosette Chance is a 63-year-old white female, who presented to the emergency department on 04/08/2019 with a combination of gross hematuria and altered mental status. She had signs indicating dehydration, had elevated serum lactate and high gravity urine. The patient is an alcoholic with over 50 alcohol units consumed per week. She had a very badly altered mental status and this was notable to her family members, who noted that it was not at her baseline status. The patient had some improvement with standard medical therapy, but has had persistent elevation of her white count. Interestingly, she has had no bandemia. The patient's CT scan imaging studies remain relatively stable with inflammatory changes around her bladder as seen on her admission CT scan and on subsequent aortic runoff imaging study performed today. The patient has also developed some discoloration of her feet bilaterally, more noticeable on the left. Despite these changes, she has had relatively the same overall white count without immature forms being present. The patient is not febrile at the present time. Her urine culture is negative at 48 hours. PHYSICAL EXAMINATION: VITAL SIGNS: The patient's temperature is 98.1, pulse remains elevated at 102, respiratory rate 22, O2 saturation on room air is 98%, blood pressure is 118/71. The patient is on room air at the present time. I and Os: The patient is producing some urine at the present time with about equal intake and output balance. The Pratt catheter is in place draining the patient's bladder today. GENERAL: This is a white female, in no distress. LUNGS: Clear. CARDIAC: There is a regular rate and rhythm. ABDOMEN: Soft and nontender. The patient reported some tenderness in the abdomen in the infraumbilical position yesterday, which is unchanged today. EXTREMITIES: Lower extremities, there is a purple discoloration of the feet bilaterally. LABORATORY STUDIES: The patient's white count today remains elevated at 23.9000, hemoglobin is 11.2 with hematocrit of 32.0. The patient's overall white count has not really substantially changed during her hospitalization since 04/08/2019. Overall, neutrophil percentage remains about the same as well. The ANC for the patient is 17.1 today, which is essentially unchanged since admission. The patient only had 2 bands present in her white blood cell differential at arrival here and had only 7 a few hours later with hydration. This is a little unusual considering the number of white cells in her blood. Serum chemistries, no new ones have been performed since 04/08/2019. The patient had elevated serum lactate, which has resolved with adequate hydration therapy. Her urinalysis showed a large amount of leukocyte esterase, and 21 to 50 white cells per high-power field, as well as greater than 50 red cells per high-power field at admission. She had a large amount of urinary protein and a urine specific gravity was 1.026. Her urine culture from admission on 04/08/2019, shows no growth at 48 hours obtained by straight catheter. ASSESSMENT AND PLAN: 1. Bladder wall mass lesions. These can be caused by multiple causes. Papillary transitional cell carcinoma would be the number one type of cancer to expect in a heavy long and long-term smoker. Patients in this setting could also have a primary bladder lymphoma. This could correlate well with the patient's other hematologic findings. We will plan on proceeding to the operating room for cystourethroscopy and transurethral resection of bladder tumors at present. 2. Inflammatory findings around the patient's bladder, unclear what the origin of this as the patient does not have cystitis, and there is no clear evidence of perforation on the patient's cystogram study. No obvious mechanism exists for the inflammatory changes. I doubt an acute inflammatory process given the lack of bands in the patient's admission laboratory, she has relatively persistent elevated white count without bandemia, which would suggest a more chronic elevation in white cells. We will plan on proceeding to the operating room on 04/11/2019. Surgical plans discussed with the patient's and the patient this evening. Consent form has been signed. Job ID: [id number]
[2019-04-11] MEDS: NS 0.9% w/ 20 MEQ KCL 1,000 ML IV SCH ×3 (04:29→18:48)
[2019-04-11] MEDS: metroNIDAZOLE 500 MG in Premix Bag 1 BAG IVPB SCH ×3 (04:30→20:48)
[2019-04-11 06:25] LABS: Anion Gap 15 mmol/L (10-20); BUN (Urea Nitrogen) 5 mg/dL (9.8-20.1); Band 4 % (5-11); Calc. Creatinine Clearance 105 mL/min (70-130); Calcium 6.9 mg/dL (7.8-10.44); Carbon Dioxide 22 mmol/L (23-31); Chloride 101 mmol/L (98-107); Estimated GFR-MDRD Greater than 90; Glucose 97 mg/dL (80-115); Hemoglobin 9.3 g/dL (12.0-16.0); Hypochromia SLIGHT = 6-15 cells (100X) (0-5/hpf); Lymphocytes 15 % (21-51); MDiff Complete? YES; Macrocytosis SLIGHT = 6-15 cells (100X) (0-5/hpf); Mean Corpuscular HGB CONC 33.5 g/dL (32.0-36.0); Mean Platelet Volume 6.5 fL (7.4-10.4); Monocytes 4 % (0-10); Neutrophil 77 % (42-75); Platelet Count 127 thou/uL (130-400); Platelet Morphology Comment Appears Decreased; Potassium 3.1 mmol/L (3.5-5.1); Red Blood Cell (RBC) Count 2.65 mill/uL (4.20-5.40); Sodium 135 mmol/L (136-145); White Blood Cell (WBC) Count 21.7 thou/uL (4.8-10.8)
[2019-04-11] MEDS ORDERED: Bupivacaine/Epinephrine 0.25% 30 ML VIAL ONE ×2 (08:34→14:20)
[2019-04-11] MEDS: Thiamine HCl 200 MG/2 ML VIAL IM SCH (09:19)
[2019-04-11] MEDS: Multivitamins, Adult 10 ML in Sodium Chloride 0.9% 500 ML IV SCH (10:27)
[2019-04-11] MEDS ORDERED: Fentanyl 100 MCG/2 ML VIAL ONE ×3 (14:24→16:56)
[2019-04-11] MEDS ORDERED: Rocuronium Bromide 10 MG/ML (10ML VIAL) ONE (16:14)
[2019-04-11] MEDS ORDERED: Ondansetron PF 4 MG/2 ML Vial ONE (16:14)
[2019-04-11] MEDS ORDERED: Vecuronium 10 MG VIAL ONE (16:14)
[2019-04-11] MEDS ORDERED: Lidocaine 1% PF 5 ML VIAL ONE (16:14)
[2019-04-11] MEDS ORDERED: PROPOFOL 200 MG/20 ML VIAL ONE (16:14)
[2019-04-11] MEDS ORDERED: PHENYLEPHRINE-NS 100 MCG/ML 10 ML SYRINGE ONE (16:14)
[2019-04-11] MEDS ORDERED: SUGAMMADEX SODIUM 500 MG/5 ML VIAL ONE (16:49)
[2019-04-11] MEDS ORDERED: Promethazine HCl 25 MG/ML VIAL ONE (16:56)
--- NOTE | 2019-04-11 17:01 | OP ---
DATE OF PROCEDURE: 04/11/2019 PREOPERATIVE DIAGNOSES: Retroperitoneal and intraperitoneal free fluid of undetermined nature. POSTOPERATIVE DIAGNOSES: 1. Urinary bladder neoplasm. 2. Free fluid associated with the urinary bladder neoplasm. 3. There appears to be a right retroperitoneal previous hemorrhage, no expanding hematoma. PROCEDURES PERFORMED: 1. Diagnostic laparoscopy. 2. Aspiration of peritoneal fluid for cytology and creatinine. ANESTHESIA: General endotracheal. ESTIMATED BLOOD LOSS: 5 mL. FLUIDS: Given 400 mL crystalloids. COUNTS: Sponge and instrument counts were verified as correct x2. COMPLICATIONS: None apparent at the time of operation. INDICATIONS FOR OPERATION: A 63-year-old woman presented with abnormal mental status. Clinical radiographic examination was consistent with suspected neoplasm involving the urinary bladder. Free fluid in the peritoneal and retroperitoneal compartments were concerning for bowel source. I was asked to evaluate the patient to exclude general surgical pathology. DESCRIPTION OF PROCEDURE: The patient was brought to the operating room for diagnostic laparoscopy. The findings were consistent with what appears to be infiltrating urinary bladder neoplasm. There was omental adhesion in the dome of the bladder associated with this neoplastic process. Hemorrhagic free fluid was aspirated and sent for cytology and creatinine. Small bowel inspected, no evidence of small bowel involvement. Large intestine was inspected from the cecum through the ascending, transverse, descending colon, and rectum, I did not see any pathology. Normal appendix was noted in the usual anatomic location. The liver was inspected and there were no nodularities. The gallbladder, which was normal appearing was in the usual anatomic location. Omentum appeared quite healthy. There was no evidence of intraabdominal carcinomatosis. Finding no other pathology, laparoscopy was terminated. The abdomen was desufflated. All ports and instruments removed and accounted for. Skin incisions closed using 4-0 Monocryl suture in subcuticular fashion. Dermabond was applied over incisional closure. Please note that, I did place a 5 mm umbilical port as well as a 5 mm left lower quadrant port, which were placed after the overlying skin were infiltrated with 0.25% Marcaine with epinephrine. Appropriate incision was made. The abdomen was insufflated with 3 L of CO2 gas noting 2 mmHg of intraabdominal pressure. The patient was placed in Trendelenburg position, rotated to her left for the majority of the procedure; however, during inspection of the right upper quadrant in the reverse Trendelenburg position, rotated to her left. She did tolerate the procedures without any apparent complication and we will proceed to the cystoscopy suite with Dr. Yap for remainder of procedures. Job ID: [id number]
[2019-04-11] MEDS ORDERED: Meperidine HCl/PF 25 MG/ML VIAL SLOW IVP PRN (17:08)
[2019-04-11] MEDS ORDERED: PACU-Morphine 4MG/ML VIAL SLOW IVP PRN (17:08)
[2019-04-11] MEDS ORDERED: Promethazine HCl 25 MG/ML VIAL SLOW IVP PRN (17:08)
[2019-04-11] MEDS ORDERED: Ondansetron HCl/PF 4 MG/2 ML Vial IVP PRN (17:08)
[2019-04-11] MEDS ORDERED: Promethazine HCl 25 MG/ML VIAL IM PRN (17:08)
[2019-04-11] MEDS ORDERED: Morphine Sulfate 2 MG/ML SYRINGE SLOW IVP PRN (17:08)
[2019-04-11] MEDS ORDERED: HYDROmorphone 2 MG/ML VIAL SLOW IVP PRN (17:08)
--- NOTE | 2019-04-11 21:21 | OP ---
DATE OF PROCEDURE: 04/11/2019 PREOPERATIVE DIAGNOSES: 1. Bladder tumor greater than 5 cm. 2. Concern for infiltration into the space of Retzius and possibly beyond. 3. Elevated mature white blood cell differential with neutrophilia. 4. Altered mental status. POSTOPERATIVE DIAGNOSES: 1. Bladder tumor greater than 5 cm. 2. Concern for infiltration into the space of Retzius and possibly beyond. 3. Elevated mature white blood cell differential with neutrophilia. 4. Altered mental status. 5. [place] infiltrative tumor of bladder generally inconsistent with usual urothelial carcinomas suggesting possible lymphatic origin. PROCEDURES PERFORMED: 1. Transurethral resection of bladder tumor greater than 5 cm, [id number]. 2. Colposcopy. SPECIMENS REMOVED: Bladder tumor with muscle fibers. ESTIMATED BLOOD LOSS: Less than 5 mL. OPERATIVE FINDINGS: 1. Necrotic black, maroon and white areas with infiltrative characteristics and inflammatory superficial blebs of the bladder suggesting a non-urothelial origin. 2. Negative colposcopy. BRIEF HISTORY AND INDICATIONS FOR PROCEDURE: Ms. Rosette Chance is a 63-year-old white female with a history of heavy alcohol use, who presented to the emergency department with findings of elevated white blood cell count and altered mental status. She became more clear after she had proper medical therapy for about 36 hours and became lucid. The patient was not able to provide any reliable information, however. She does have a history of heavy cigarette smoking in the past, as well as 50 alcohol units consumption per week. Today, the patient opted to proceed to the operating room for cystourethroscopy and in addition, the patient opted to undergo exploratory laparoscopy with Dr. Atul Wilkerson, which immediately preceded my procedure. DESCRIPTION OF PROCEDURE: I received the patient intubated and already under general anesthesia from Dr. Atul Wilkerson. The patient was transported to the cystoscopic suite while under general anesthesia from the laparoscopy suite and placed in a supine position and subsequently in the supine lithotomy position. She was prepped and draped in usual sterile fashion. Cystoscopic evaluation was performed using a cystoscope with a 30-degree lens. This demonstrated multiple areas of the right side anterior aspect and posterior aspect of the patient's bladder covered with what appeared to be inflammatory blebs. Most of these contained what appeared to be white blood cells, but a few contained red hemorrhage or maroon coloration. There were also some areas of clear necrotic black colored tissue and in addition, tissue that appeared white and bland in coloration. None of this tissue had the usual appearance of transitional cell carcinoma, instead of an infiltrative process through the muscle layer and causing inflammatory blebs in the urothelium. We performed transurethral resection of an area greater than 5 cm, not all of this tissue could be removed. We did resect down to the muscle layer and muscle fibers were included in the specimen. The specimens were recovered using Ellik evacuator of the Ciplex resectoscope device with a bladder loop was utilized for the entire resection. Excellent hemostasis was obtained using cautery settings. We placed a 24-Croatian 3-way Pratt catheter with a 30 mL balloon into the patient's bladder and placed this to saline CBI at a low rate. The patient's hematuria rapidly cleared. She was transported to the postoperative recovery area in good condition. DRAINS AND TUBES: 24-Croatian 3-way Pratt catheter. SPECIMENS: Apparent bladder tumor, although an exo source is considered likely as opposed to a primary bladder malignancy. ANESTHESIA: General by endotracheal means. BLOOD LOSS: Negligible. Job ID: [id number]
[2019-04-12] MEDS: Cefepime 2 GM in Sodium Chloride 0.9% 100 ML IVPB SCH ×3 (01:23→16:40)
[2019-04-12] MEDS: NS 0.9% w/ 20 MEQ KCL 1,000 ML IV SCH ×3 (05:52→20:17)
[2019-04-12] MEDS: metroNIDAZOLE 500 MG in Premix Bag 1 BAG IVPB SCH ×3 (05:53→20:19)
[2019-04-12 06:40] LABS: #Basophils 0.1 thou/uL (0.0-0.2); #Lymphocytes 2.2 thou/uL (1.20-3.40); #Neutrophils 15.8 thou/uL (1.40-6.50); %Basophils 0.3 % (0.0-1.0); %Eosinophils 0.2 % (0.0-10.0); %Monocytes 9.9 % (0.0-10.0); %Neutrophils 78.6 % (42.0-75.0); Hemoglobin 9.3 g/dL (12.0-16.0); Mean Corpuscular HGB CONC 32.9 g/dL (32.0-36.0); Mean Corpuscular Hemoglobin 34.6 pg (27.0-31.0); Mean Platelet Volume 7.1 fL (7.4-10.4); Platelet Count 115 thou/uL (130-400); RBC Distribution Width 12.2 % (11.5-14.5); White Blood Cell (WBC) Count 20.1 thou/uL (4.8-10.8)
[2019-04-12 06:55] LABS: ALT (SGPT) 8 U/L (8-55); AST (SGOT) 20 U/L (5-34); Albumin 2.4 g/dL (3.4-4.8); Alkaline Phosphatase 85 U/L (40-150); Anion Gap 13 mmol/L (10-20); BUN (Urea Nitrogen) 6 mg/dL (9.8-20.1); Bilirubin, Total 0.8 mg/dL (0.2-1.2); Calc. Creatinine Clearance 105 mL/min (70-130); Calcium 6.9 mg/dL (7.8-10.44); Carbon Dioxide 24 mmol/L (23-31); Chloride 104 mmol/L (98-107); Estimated GFR-MDRD Greater than 90; Glucose 110 mg/dL (80-115); Potassium 3.3 mmol/L (3.5-5.1); Protein, Total 5.4 g/dL (6.0-8.3); Sodium 138 mmol/L (136-145)
[2019-04-12] MEDS: Thiamine HCl 200 MG/2 ML VIAL IM SCH (08:38)
[2019-04-12] MEDS: Multivitamins, Adult 10 ML in Sodium Chloride 0.9% 500 ML IV SCH (08:39)
--- NOTE | 2019-04-12 12:21 | RAD ---
Radiograph left foot 2 views: 04/12/2019 HISTORY: 63-year-old female with left foot pain. "Gout versus injury" FINDINGS: Joint spaces are maintained without erosions or significant osteophytes. No periostitis, permeative l esion, osteolytic lesion, osteoblastic lesion, or fracture. No dislocation. No soft tissue calcifications. Mild bony hypertrophy of the medial aspect of first metatarsal head. No hallux valgus . Diffuse mild soft tissue edema. IMPRESSION: 1. Mild bony hypertrophy of medial aspect of first metatarsal head. 2. Diffuse soft tissue edema. 3. Otherwise negative.
--- NOTE | 2019-04-12 14:18 | PDOC.PN ---
- Subjective Encounter Start Date: 04/12/19 Encounter Start Time: 14:17 Patient seen and examined, no new issues or complaints. - Objective Vital Signs & Weight: Vital Signs (12 hours) Temp Pulse Resp BP Pulse Ox 04/12/19 11:53 97.9 F 104 H 16 96/61 97 04/12/19 08:00 98.0 F 110 H 16 103/64 98 04/12/19 04:00 97.8 F 116 H 16 106/71 98 Weight Admit Weight 128 lb 11.999 oz Weight 131 lb 2.801 oz Most Recent Monitor Data Heart Rate from ECG 104 NIBP 116/77 NIBP BP-Mean 90 Respiration from ECG 18 SpO2 95 I&O: 04/11/19 04/12/19 04/13/19 06:59 06:59 06:59 Intake Total 960 2180 Output Total 320 2075 Balance 640 105 Result Diagrams: 04/12/19 05:41 04/12/19 05:41 Phys Exam - Physical Examination Constitutional: NAD HEENT: PERRLA, moist MMs Neck: no nodes, no JVD Respiratory: no wheezing, no rales, no rhonchi Cardiovascular: RRR, no significant murmur, no rub Gastrointestinal: soft, non-tender, no distention, positive bowel sounds Musculoskeletal: pulses present, edema present left foot erythema Dx/Plan (1) Left foot pain Code(s): M79.672 - PAIN IN LEFT FOOT Status: Acute (2) Bladder neoplasm Code(s): D49.4 - NEOPLASM OF UNSPECIFIED BEHAVIOR OF BLADDER Status: Acute - Plan * xray of foot * cont current plan of care * no changes * case and plan d/w patient at length, they understood and agreed with this plan.
--- NOTE | 2019-04-12 14:53 | PRG ---
DATE OF SERVICE: 04/12/2019 SUBJECTIVE: The patient was seen this morning sitting up in bed with no signs of acute distress. Reported that pain was well controlled overnight and she is tolerating a clear liquid diet. She had no acute events overnight and is making good urine through her Pratt. She is postoperative day 1 status post diagnostic laparotomy and aspiration of retroperitoneal fluid by Dr. Wilkerson. She denies nausea, vomiting, or diarrhea. OBJECTIVE: VITAL SIGNS: Temperature 97.9, pulse 104, respirations 16, oxygen saturation 97% on room air, blood pressure 96/61. GENERAL: Well-appearing middle-aged female, sitting up in bed with no signs of acute distress. Nontoxic appearing. PULMONARY: Equal chest rise and fall. Clear breath sounds bilaterally. No signs of acute respiratory distress. CARDIAC: Tachycardic, but regular rhythm. No murmurs, gallops, or rubs. GI: Abdomen is soft, mildly tender to palpation, inappropriate, and nondistended. EXTREMITIES: 2+ pulses in all extremities. Some slight swelling to bilateral upper and left lower extremity extremities. Gross motor and sensation intact. Otherwise. NEUROLOGIC: GCS is 15. Gross motor and sensation are intact. LABORATORY FINDINGS: White count 20.1, hemoglobin 9.8, hematocrit 28.4, and platelets 115. Sodium 138, potassium 3.3, chloride 104, carbon dioxide 24, BUN 6, creatinine 0.5, glucose 110. DIAGNOSTIC FINDINGS: X-ray completed of the left foot demonstrates mild bony atrophy of medial aspect of the first metatarsal head, diffuse soft tissue edema, otherwise negative. ASSESSMENT: 1. Status post altered mental status, now improved. 2. Suspected urinary bladder neoplasm with retroperitoneal fluid. PLAN: The patient was taken to the OR yesterday by Dr. Wilkerson, where diagnostic laparoscopy was completed with aspiration of the retroperitoneal fluid. This demonstrated that the patient's neoplasm can be seen both inside the bladder and outside the bladder as well. There is no further indication for surgery from General Surgery service at this time. We will sign off at this time. Please feel free to re-consult General Surgery or call with any questions. There is no need for followup in the surgery clinic. The patient was seen and examined by Dr. Wilkerson and myself this morning during rounds. Job ID: [id number]
--- NOTE | 2019-04-12 15:25 | RAD ---
RADIOGRAPH CHEST 1 VIEW: DATE: 04/12/2019 HISTORY: 63-year-old female status post central line placement. FINDINGS: There are no airspace densities, pulmonary edema, pneumothorax, or cardiomegaly. The lateral costophr enic angles are sharp. There is a left subclavian central vascular catheter with distal tip overlying the SVC. Mild subsegmental atelectasis at left lateral base. IMPRESSION: 1. No acute cardiopulmonary findings. 2. Left subclavian central vascular catheter.
--- NOTE | 2019-04-12 16:03 | ULT ---
ULTRASOUND DOPPLER DUPLEX VENOUS LEFT UPPER EXTREMITY:: DATE: 04/12/2019 HISTORY: 63-year-old female with left upper extremity edema. TECHNIQUE: Grayscale, color-flow, and spectral analysis, of the left upper extremity major veins. FINDINGS: Diffuse soft tissue edema of left upper extremity. Limited visualization of left subclavian vein due to overlying and images. There is blood flow in the left subclavian vein. Left internal jugular vein is clear. There is occlusive thrombosis of the left basilic vein, from the antecubital fossa to the arm. There is occlusive thrombosis of the cephalic vein in the forearm. Brachial, radial, and ulnar veins are patent. IMPRESSION: Positive for occlusive thrombosis of the left basilic vein and left cephalic vein.
--- NOTE | 2019-04-12 17:21 | PRG ---
DATE OF SERVICE: 04/12/2019 Initial date of consultation request is 04/08/2019. BRIEF HISTORY: Ms. Rosette Chance is a 63-year-old white female, who presented to the emergency department on 04/08/2019, with a combination of gross hematuria and altered mental status. She was found down at home by her . The patient had signs indicative of dehydration as well as elevated serum lactate and high urine gravity. The patient was tachycardic and does have a history of significant alcohol use including up to 50 alcohol units consume per week. The patient was initially cared for in the intensive care unit and stabilized from a medical standpoint. She was noted to have elevated white blood cell count as well as a relatively low number of bands in her blood smears. This persisted to today. Yesterday, the patient was taken to the operative suite for evaluation by laparoscopy to evaluate a possible bladder mass. The patient was evaluated by Dr. Wilkerson and found to have swelling in the space of Retzius with general purple coloration to it. The patient also underwent cystoscopic evaluation and transurethral resection of a bladder tumor filling about 1/2 of her bladder. The patient's bladder tumor was not typical for transitional cell carcinoma, but highly suggestive of a white blood cell malignancy. The patient's specimens have been sent for permanent section and pathology. Overnight, I did consult Dr. Nikky Munoz of the Oncology Service and she is also having further followup of the patient's laboratory studies, which are being performed at present. PHYSICAL EXAMINATION: VITAL SIGNS: The patient is afebrile with a temperature of 98.0, pulse remains in tachycardic range of 104, O2 saturation is 94% on room air, respiratory rate currently 16, and blood pressure is 110/67. HEAD, EYES, EARS, NOSE, AND THROAT: Extraocular movements are intact. Sclerae anicteric. Oropharynx is clear. NECK: Supple. LUNGS: Clear to auscultation bilaterally. CARDIAC: Regular rate and rhythm without murmur, rub, or gallop. ABDOMEN: Soft and nontender. EXTREMITIES: The patient has bruising of the arms on both sides. She has some swelling of her left arm. GENITOURINARY: An indwelling Pratt catheter is in place and I did discontinue that. After hand irrigation, there is only minimal clot present today. We removed the catheter in its entirety. The patient does have urethral caruncle. EXTREMITIES: The patient's bilateral feet are swollen. INTERVAL EVENTS: The patient was noted by her very diligent nurse today to have some swelling of her left arm. She does have a left subclavian central line. The patient has not been receiving IV fluid due to that and we did have that restarted. An ultrasound does show some degree of clot in the left arm as well. The patient is otherwise without any new interval events. LABORATORY STUDIES: White count remains elevated at 20.1, hemoglobin is 9.3 with hematocrit of 28.4. The mean corpuscular volume is elevated at 105. Platelet count is 115, which has improved over the hospitalization. Absolute neutrophil count is elevated at 15.8. There is a minimal monocytosis. Serum chemistry showed the patient's current blood urea nitrogen at 6, creatinine at 0.5 with an estimated glomerular filtration rate of greater than 90, blood glucose is 110, potassium is improved a bit today to 3.3. Serum total protein is low at 5.4 and serum albumin also low at 2.4. The albumin globulin ratio is also low at 0.8. ASSESSMENT AND PLAN: 1. Bladder lesion. This appears to be an infiltrative type tumor. 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 This is a relatively rare disorder and we will have to wait on pathology and flow cytometry studies, to complete that, Dr. Munoz has been consulted. She does not appear to be bleeding today and we discontinued her Pratt catheter. 2. Anticoagulation and coagulation issues. The patient with apparent blood clots in her left arm, also swelling of the feet bilaterally, which we had attributed to gout. I think the patient should be placed on heparin despite previous bladder bleeding and recent resection, we will try that and see if she is able to tolerate without excessive bleeding from the bladder. We will start at 5000 subcu units three times a day. MARILY hose and sequential compression devices will also be applied. The patient's general swelling may be in part due to generalized anasarca from deficiency of albumin in the context of saline rehydration. Also, blood disorders may lead to edema as well. Job ID: [id number]
[2019-04-12] MEDS ORDERED: Rivaroxaban 15 MG TAB PO SCH (17:30)
[2019-04-12] MEDS: Estrogens, Conjugated 30 GM TUBE VAG SCH (20:19)
[2019-04-12] MEDS ORDERED: Heparin 5,000 UNITS/ML VIAL SC SCH (21:00)
[2019-04-13] MEDS: Cefepime 2 GM in Sodium Chloride 0.9% 100 ML IVPB SCH ×3 (01:02→18:01)
[2019-04-13] MEDS: NS 0.9% w/ 20 MEQ KCL 1,000 ML IV SCH ×2 (01:02→12:49)
[2019-04-13] MEDS: metroNIDAZOLE 500 MG in Premix Bag 1 BAG IVPB SCH ×3 (05:28→20:44)
[2019-04-13] MEDS ORDERED: Rivaroxaban 15 MG TAB PO SCH (08:00)
[2019-04-13] MEDS: Thiamine HCl 200 MG/2 ML VIAL IM SCH (09:15)
[2019-04-13] MEDS: Estrogens, Conjugated 30 GM TUBE VAG SCH ×2 (09:16→20:44)
--- NOTE | 2019-04-13 09:16 | CON ---
DATE OF CONSULTATION: REASON FOR CONSULTATION: Bladder cancer. HISTORY OF PRESENT ILLNESS: A 63-year-old female with alcoholism, anxiety, and former tobacco abuse, presented into the hospital with altered mental status. She was found to be unarousable by her . Apparently, they were both very intoxicated once they went to bed with no idea if anything happened during the night. When she was aroused, she was extremely confused and she was brought to [facility] ER. The patient was febrile and had a leukocytosis and required IV Ativan in order to be managed. She had a CT brain and chest x-ray that were negative, followed by a CT abdomen and pelvis that showed a retroperitoneal complex fluid and possible hemorrhage with a normal attenuation in the urinary bladder. A repeat CT abdomen and pelvis with contrast again showed complex fluid in the retroperitoneum and perivesicular region and given abnormal attenuation in the right aspect of the bladder, a bladder tumor was favored. After admission to the hospital, the patient was evaluated by urologist, Dr. Nate Yap. The patient noted hematuria, but could not provide very much history. Urine cultures were negative at [address] Wilkerson and Dr. Yap took the patient for surgery on April 11. Dr. Wilkerson performed exploratory laparotomy that was grossly unremarkable. Dr. Yap performed a TURBT for bladder tumor greater than 5 cm with concern for an infiltration of the muscle. During the procedure, he found necrotic black, maroon, and white areas with infiltrative characteristics and inflammatory superficial blebs of the bladder, which at least suggesting non-urothelial origin of the tumor, possibly lymphoma. On evaluation of the patient today, she only complains of swelling in her left upper extremity. Denies any pain. Her has also noticed the swelling and is complaining of her nocturia over urine. She denies any fevers, night sweats, or unintentional weight loss in the last few months. The laboratory data revealed a marked leukocytosis and the white count of 20.1 with mostly neutrophil predominant with a low lymphocyte count. She has an elevated LDH of 412 and normal uric acid of 3.3. REVIEW OF SYSTEMS: Ten-point review of systems negative except as per HPI. PAST MEDICAL HISTORY: Alcohol abuse, tobacco abuse, hyperlipidemia, and anxiety. PAST SURGICAL HISTORY: Hysterectomy and D and C, exploratory laparotomy, and TURBT. PSYCHIATRIC HISTORY: Anxiety and depression. SOCIAL HISTORY: Former tobacco abuse. Current alcohol abuse up to six pack of beer, two to three mixed drinks daily, and up to 50 drinks per week. ALLERGIES: NO KNOWN DRUG ALLERGIES. CURRENT MEDICATIONS: Reviewed. PHYSICAL EXAMINATION: VITAL SIGNS: Temperature 97.9, pulse 104, respirations 16, saturating 97% on room air, and blood pressure 96/61. GENERAL APPEARANCE: The patient is lying in bed, in no acute distress. HEENT: Normocephalic and atraumatic. NECK: Supple. CHEST: Clear to auscultation bilaterally. CARDIAC: Tachycardic, but regular. S1 and S2. ABDOMEN: Soft and nontender. EXTREMITIES: Minimal lower extremity swelling with 2+ edema on bilateral upper extremities, left greater than right. A left-sided central line is in place. NEUROLOGIC: Cranial nerves 2 through 12 are grossly intact. LABORATORY DATA: White blood cell 20.1, hemoglobin 9.3, and platelets 115. Sodium 138, potassium 3.3, BUN 6, creatinine 0.50, LDH 412, and albumin 2.4. Folate and B12 are normal. Cortisol 17.60. IMAGING DATA: CT chest, abdomen, and pelvis shows fluid around the bladder and retroperitoneum with suspected bladder mass. Vascular ultrasound, occlusive thrombosis of the left basilic vein and left cephalic vein. ASSESSMENT AND PLAN: A 63-year-old female with alcohol and tobacco abuse, presented with altered mental status and hematuria, found to have a bladder mass. Gross images of the bladder did not appear to be consistent with urothelial origin and raise a suspicion of lymphoma. Pathology is currently pending. Flow cytometry is also pending. Continued workup and treatment plan will be dependent on pathology results. The patient has left upper extremity swelling and a central line was placed two days ago for access, so I ordered an ultrasound, which confirms the superficial venous thrombosis of the cephalic and basilic vein. Due to the bladder malignancy, she is thus having hypercoagulable state, although the blood clots are likely secondary to the central line, which could not be removed as the team is unable to obtain access. I recommend starting Xarelto 15 mg p.o. b.i.d. in the interim and we will continue this long time given her hypocoagulable state as long as she does not suffer any traumatic hematuria or other bleeding. We will continue to follow this patient with you and will discuss future options once the pathology results return. Thank you for this consult. Job ID: [id number] MTDD
[2019-04-13] MEDS: Multivitamins, Adult 10 ML in Sodium Chloride 0.9% 500 ML IV SCH (12:46)
--- NOTE | 2019-04-13 14:54 | PDOC.PN ---
- Subjective Encounter Start Date: 04/13/19 Encounter Start Time: 14:51 Patient seen and examined, no new issues, daughter at bedside, all questions answered. - Objective Vital Signs & Weight: Vital Signs (12 hours) Temp Pulse Resp BP BP Pulse Ox 04/13/19 11:19 97.9 F 97 16 126/76 95 04/13/19 07:23 98.5 F 87 18 126/78 94 L 04/13/19 07:22 98.5 F 87 16 126/7 L 94 L Weight Admit Weight 128 lb 11.999 oz Weight 131 lb 2.801 oz Most Recent Monitor Data Heart Rate from ECG 104 NIBP 116/77 NIBP BP-Mean 90 Respiration from ECG 18 SpO2 95 I&O: 04/12/19 04/13/19 04/14/19 06:59 06:59 06:59 Intake Total 2180 1212 Output Total 2075 540 Balance 105 672 Result Diagrams: 04/12/19 05:41 04/12/19 05:41 Phys Exam - Physical Examination Constitutional: NAD HEENT: PERRLA, moist MMs, sclera anicteric Neck: no nodes, no JVD, supple Respiratory: no wheezing, no rales, no rhonchi Cardiovascular: RRR, no significant murmur, no rub Gastrointestinal: soft, non-tender, no distention Musculoskeletal: no edema, pulses present left foot with toe erythema and pain Dx/Plan (1) Left foot pain Code(s): M79.672 - PAIN IN LEFT FOOT Status: Acute (2) Bladder neoplasm Code(s): D49.4 - NEOPLASM OF UNSPECIFIED BEHAVIOR OF BLADDER Status: Acute (3) ATN (acute tubular necrosis) Code(s): N17.0 - ACUTE KIDNEY FAILURE WITH TUBULAR NECROSIS Status: Acute - Plan * change IVFs * patient likely is having hemodynamic induced ATN, at this point in time will monitor IVFs for now, bladder scan post void to evaluate for retention vs reduced urine production * monitor Cr levels * foot pain and swelling improving, check uric acid * vitals stable * pain controlled * pathology pending * case and plan d/w patient and daughter at length, they understood and agreed with this plan.
[2019-04-13] MEDS: Potassium Chloride 40 MEQ in Sodium Chloride 0.45% 1,000 ML IV SCH (16:19)
[2019-04-13] MEDS: Enoxaparin Sodium 40 MG/0.4 ML SYRINGE SC SCH (17:21)
--- NOTE | 2019-04-13 18:45 | CON ---
DATE OF CONSULTATION: 04/13/2019 DATE OF INITIAL CONSULTATION REQUEST: 04/08/2019. REASON FOR CONSULTATION: 1. Bladder mass. 2. Gross hematuria. BRIEF HISTORY: Ms. Rosette Chance is a 63-year-old white female, who presented to the emergency department on 04/08/2019, with a combination of gross hematuria and altered mental status. The patient was initially found down at home by her and had signs indicative of dehydration as well as elevated serum lactate and high urine gravity. The patient was tachycardic at admission and does have a history of significant alcohol use up to 50 alcohol units consumed per week. The patient had been drinking up to seven alcoholic beverages the night prior to being found down. The patient was initially cared for in intensive care unit and stabilized from a medical standpoint. She had altered mental status for two days and eventually had some clearing of her cognition. The patient was taken to the operative suite for laparoscopic evaluation as well as transurethral resection of the bladder lesion on 04/11/2019. Pathology remains pending for that. This will probably not be available until Tuesday. Briefly, Dr. Wilkerson did a diagnostic laparoscopy and found that the space of [place] had a generalized purple coloration to it, this is the area surrounding the bladder. There was a small amount of fluid within the patient's abdomen. This was aspirated and sent for cytology. The patient also underwent cystoscopic evaluation and transurethral resection of the bladder lesion, which affected about 1/2 of her bladder lining. She had a lesion, which was very abnormal for transitional cell carcinoma. I think the findings are highly suggestive of a malignancy coming from somewhere else such as a white blood cell malignancy based on the presentation. The patient has been seen and evaluated by Dr. Blue of the Oncology Service after I discussed the patient's case with Dr. Munoz. The patient has additional studies pending and these will probably not be back until Tuesday for further discussion. The patient did have a left arm blood clot and has a left subclavian central line. She has extremely poor access. Essentially, we were not able to find veins on her without use of central lines. The patient's central line is otherwise functional and I have recommended continued use of that. PHYSICAL EXAMINATION: VITAL SIGNS: The patient remains afebrile. Current temperature is 97.9, pulse 97, respirations 16, O2 saturation is 95%, and blood pressure is 126/76. GENERAL: The patient is having a net balance of about 600 mL per shift with fluid intake of about 1200 mL, output total at 540. On heparin coverage for anticoagulation purposes, the patient had essentially no bleeding overnight. I am recommending advancing her anticoagulation based on that to Lovenox twice daily at half of the full anticoagulation dose. HEAD, EYES, EARS, NOSE, AND THROAT: Extraocular movements are intact. Sclerae anicteric. Oropharynx is clear. NECK: Supple. LUNGS: Clear to auscultation bilaterally. CARDIAC: Regular rate and rhythm. Borderline tachycardic. ABDOMEN: Soft, nontender. Bowel sounds are heard today. The patient has no suprapubic tenderness today. There is no back tenderness. The patient does complain of swelling of all of her extremities. She does have reduced discoloration of her feet on each side, which have improved remarkably per her comments. : No Pratt catheter is in place. The patient is voiding on her own. LABORATORY STUDIES: There were no new laboratories for today. Pathology from the patient's transurethral resection of bladder tumor and aspiration of fluid from her abdomen are still pending and not expected to be available until Tuesday. ASSESSMENT: 1. Bladder lesion, very atypical for transitional cell based on the findings. This is relatively free of bleeding. It is possible this represents a metastatic feature from somewhere else and inflammatory or allergic reaction or a white blood cell malignancy. Case has been discussed with Dr. Munoz, Dr. Almazan, and Dr. Blue. 2. Anticoagulation. Based on the fact that the patient had about 10 cm of her bladder resected, I think we should follow the standard protocol for patients that have had the surgical resection without primary closure, and in my experience, full anticoagulation results in severe gross hematuria, requiring return to the operating room. In this patient, I think we should start with half of the 70 mg twice daily dose for Lovenox which would be 35 mg ordinarily, we will start with 40 twice daily. I did stop the Xarelto anticoagulation due to my concerns about getting into a situation we would not be able to control. 3. Access issues. The patient's central line should be continued and utilized for now. An alternative site is likely to lead to the same outcome as was observed and the removal of the central line likely would promote embolization of the clot instead of a more satisfactory resolution. 4. Gross hematuria, currently under control. The patient is voiding on her own. 5. Over 35 minutes of consultation, coordination of care time was spent in evaluation and assessment of this patient today. Job ID: [id number]
[2019-04-14] MEDS: Cefepime 2 GM in Sodium Chloride 0.9% 100 ML IVPB SCH ×3 (00:07→17:22)
[2019-04-14] MEDS: metroNIDAZOLE 500 MG in Premix Bag 1 BAG IVPB SCH ×3 (05:35→20:55)
[2019-04-14] MEDS: Potassium Chloride 40 MEQ in Sodium Chloride 0.45% 1,000 ML IV SCH ×2 (05:35→18:01)
[2019-04-14 07:14] LABS: #Basophils 0.1 thou/uL (0.0-0.2); #Eosinphils 0.2 thou/uL (0.0-0.7); #Lymphocytes 2.7 thou/uL (1.20-3.40); #Monocytes 1.6 thou/uL (0.11-0.59); #Neutrophils 9.4 thou/uL (1.40-6.50); %Eosinophils 1.6 % (0.0-10.0); %Lymphocytes 19.1 % (21.0-51.0); %Monocytes 11.4 % (0.0-10.0); %Neutrophils 67.1 % (42.0-75.0); Hemoglobin 8.9 g/dL (12.0-16.0); Mean Corpuscular HGB CONC 33.1 g/dL (32.0-36.0); Mean Corpuscular Hemoglobin 34.2 pg (27.0-31.0); Mean Platelet Volume 6.8 fL (7.4-10.4); Platelet Count 118 thou/uL (130-400); RBC Distribution Width 12.3 % (11.5-14.5); Red Blood Cell (RBC) Count 2.61 mill/uL (4.20-5.40); White Blood Cell (WBC) Count 14.1 thou/uL (4.8-10.8)
[2019-04-14 07:26] LABS: Anion Gap 11 mmol/L (10-20); BUN (Urea Nitrogen) Less than 4 mg/dL (9.8-20.1); Calc. Creatinine Clearance 115 mL/min (70-130); Calcium 7.8 mg/dL (7.8-10.44); Carbon Dioxide 26 mmol/L (23-31); Chloride 99 mmol/L (98-107); Estimated GFR-MDRD Greater than 90; Glucose 96 mg/dL (80-115); Sodium 133 mmol/L (136-145)
[2019-04-14 07:30] LABS: Potassium 2.6 mmol/L (3.5-5.1)
[2019-04-14] MEDS: Enoxaparin Sodium 40 MG/0.4 ML SYRINGE SC SCH ×2 (08:01→20:56)
[2019-04-14] MEDS: Multivitamins, Adult 10 ML in Sodium Chloride 0.9% 500 ML IV SCH (09:41)
[2019-04-14] MEDS: Thiamine HCl 200 MG/2 ML VIAL IM SCH (09:43)
[2019-04-14] MEDS: Estrogens, Conjugated 30 GM TUBE VAG SCH ×2 (11:13→20:58)
--- NOTE | 2019-04-14 12:18 | PDOC.PN ---
- Subjective Encounter Start Date: 04/14/19 Encounter Start Time: 12:16 Patient seen and examined, no new issues or complaints. - Objective Vital Signs & Weight: Vital Signs (12 hours) Temp Pulse Resp BP Pulse Ox 04/14/19 08:00 98.6 F 68 18 137/76 97 Weight Admit Weight 128 lb 11.999 oz Weight 131 lb 2.801 oz Most Recent Monitor Data Heart Rate from ECG 104 NIBP 116/77 NIBP BP-Mean 90 Respiration from ECG 18 SpO2 95 I&O: 04/13/19 04/14/19 04/15/19 06:59 06:59 06:59 Intake Total 1212 1031 240 Output Total 540 750 Balance 672 281 240 Result Diagrams: 04/14/19 06:58 04/14/19 06:58 Phys Exam - Physical Examination Constitutional: NAD HEENT: PERRLA, moist MMs, sclera anicteric Neck: no nodes, no JVD, supple Respiratory: no wheezing, no rales, no rhonchi Cardiovascular: RRR, no significant murmur, no rub Gastrointestinal: soft, non-tender, no distention, positive bowel sounds Musculoskeletal: pulses present, edema present Dx/Plan (1) Left foot pain Code(s): M79.672 - PAIN IN LEFT FOOT Status: Acute (2) Bladder neoplasm Code(s): D49.4 - NEOPLASM OF UNSPECIFIED BEHAVIOR OF BLADDER Status: Acute (3) ATN (acute tubular necrosis) Code(s): N17.0 - ACUTE KIDNEY FAILURE WITH TUBULAR NECROSIS Status: Acute - Plan * potassium being replaced by protocol * swelling looks much better since fluid change, cont with current IVFs 1/2 NS + KCL for now * labs in AM * pathology pending * monitor urine out put * case and plan d/w patient and at length, also d/w daughter Sherin via phone) at length, they all understand and agree with this plan
--- NOTE | 2019-04-14 16:13 | PRG ---
DATE OF SERVICE: 04/14/2019 SUBJECTIVE: Ms. Chance overall is doing well. She no longer has a Pratt catheter. She is voiding and has minimal gross hematuria. She reports some swelling in her upper and lower extremities. No complaints. OBJECTIVE: VITAL SIGNS: Temperature 98.6, pulse 68, respirations 18, oxygen saturation 97% on room air, blood pressure 137/76. GENERAL: She is awake and alert, in no apparent distress. CARDIOVASCULAR: Regular rate and rhythm. LUNGS: Breathing is unlabored. No wheezing. ABDOMEN: Soft and nontender/nondistended. No CVA tenderness. EXTREMITIES: Bilateral lower extremity edema, left greater than right as well as bilateral upper extremity edema. ASSESSMENT: A 63-year-old female with a bladder lesion of unknown origin, status post transurethral resection of bladder tumor, also status post diagnostic laparoscopy, pathology is pending. PLAN: From a urologic standpoint, the patient is doing well. She is voiding and having no obvious hematuria. She does report some urinary frequency, which is likely related to postoperative inflammation. From a surgical standpoint, her anticoagulation can be continued as the hematuria has resolved. Job ID: [id number]
--- NOTE | 2019-04-14 20:52 | EKG ---
Test Reason : SEPSIS Blood Pressure : / mmHG Vent. Rate : 109 BPM Atrial Rate : 109 BPM P-R Int : 120 ms QRS Dur : 080 ms QT Int : 364 ms P-R-T Axes : 030 -19 045 degrees QTc Int : 490 ms Sinus tachycardia Nonspecific ST abnormality Prolonged QT Abnormal ECG Confirmed by KAILYN PRASAD M.D. ([id number]), assistant editor KATELYNN LOPES ([id number]) on 04/14/2019 8:51:56 PM Referred By: Confirmed By:KAILYN PRASAD M.D.
[2019-04-15] MEDS: Cefepime 2 GM in Sodium Chloride 0.9% 100 ML IVPB SCH ×3 (01:49→17:11)
[2019-04-15] MEDS: metroNIDAZOLE 500 MG in Premix Bag 1 BAG IVPB SCH ×3 (06:33→20:41)
[2019-04-15 07:10] LABS: Anion Gap 7 mmol/L (10-20); BUN (Urea Nitrogen) Less than 4 mg/dL (9.8-20.1); Calc. Creatinine Clearance 117 mL/min (70-130); Calcium 7.8 mg/dL (7.8-10.44); Carbon Dioxide 33 mmol/L (23-31); Chloride 95 mmol/L (98-107); Estimated GFR-MDRD Greater than 90; Glucose 95 mg/dL (80-115); Sodium 133 mmol/L (136-145)
[2019-04-15 07:12] LABS: Potassium 2.4 mmol/L (3.5-5.1)
[2019-04-15 08:18] LABS: #Basophils 0.1 thou/uL (0.0-0.2); #Eosinphils 0.2 thou/uL (0.0-0.7); #Lymphocytes 2.6 thou/uL (1.20-3.40); #Monocytes 1.5 thou/uL (0.11-0.59); #Neutrophils 8.1 thou/uL (1.40-6.50); %Basophils 0.7 % (0.0-1.0); %Eosinophils 1.7 % (0.0-10.0); %Lymphocytes 20.9 % (21.0-51.0); %Monocytes 11.7 % (0.0-10.0); Hemoglobin 8.5 g/dL (12.0-16.0); MDiff Complete? YES; Macrocytosis SLIGHT = 6-15 cells (100X) (0-5/hpf); Mean Corpuscular HGB CONC 33.3 g/dL (32.0-36.0); Mean Corpuscular Hemoglobin 34.9 pg (27.0-31.0); Mean Platelet Volume 6.8 fL (7.4-10.4); Platelet Count 147 thou/uL (130-400); Polychromasia SLIGHT = 2-3 cells (100X) (0-2/hpf); RBC Distribution Width 12.4 % (11.5-14.5); Red Blood Cell (RBC) Count 2.43 mill/uL (4.20-5.40); White Blood Cell (WBC) Count 12.5 thou/uL (4.8-10.8)
[2019-04-15] MEDS: Thiamine HCl 200 MG/2 ML VIAL IM SCH (09:45)
[2019-04-15] MEDS: Estrogens, Conjugated 30 GM TUBE VAG SCH ×2 (09:45→20:48)
[2019-04-15] MEDS: Enoxaparin Sodium 40 MG/0.4 ML SYRINGE SC SCH ×2 (09:45→20:39)
[2019-04-15] MEDS: Potassium Chloride 20 MEQ TAB PO SCH ×2 (10:07→17:11)
[2019-04-15] MEDS: Multivitamins, Adult 10 ML in Sodium Chloride 0.9% 500 ML IV SCH (10:07)
[2019-04-15] MEDS: Acetaminophen 500 MG TAB PO PRN (10:07)
[2019-04-15] MEDS ORDERED: Spironolactone 25 MG TAB PO SCH ×2 (14:45→19:00)
--- NOTE | 2019-04-15 17:43 | ULT ---
Exam: Left lower extremity venous ultrasound with Doppler HISTORY: Edema. Swelling. Comparison none TECHNIQUE: Grayscale, color flow, Doppler imaging and spectral wave form analysis performed left lowe r extremity venous system FINDINGS: There is compressibility, presence of flow and augmentation in the common femoral vein, femoral vein and popliteal vein. There is flow in the greater saphenous vein and profunda vein. There is occlusive thrombus in the midportion of the posterior tibial vein. There is absence of compression an d flow. IMPRESSION: Occlusive thrombus in the mid left posterior tibial vein. Results of study were conveyed by the quick service technician to the patient's nurse at the time of examination 04/15/2019 at 5:16 PM Code CR
[2019-04-15] MEDS: Spironolactone 25 MG TAB PO SCH (20:38)
--- NOTE | 2019-04-15 21:22 | PRG ---
DATE OF SERVICE: 04/15/2019 SUBJECTIVE: Ms. Chance continues to do well. She continues to have both left upper and lower extremity swelling of her right foot. She reports her right foot is more swollen today and more painful. She is voiding without difficulty. Urinary frequency is resolving. Hematuria has resolved. OBJECTIVE: VITAL SIGNS: Temperature is 98.1, pulse 84, respirations 18, blood pressure 142/87, oxygen saturation 98% on room air. GENERAL: She is alert and oriented x3. No apparent distress. CARDIOVASCULAR: Regular rate and rhythm. PULMONARY: Breathing unlabored. No wheezing. ABDOMEN: Soft, nontender/nondistended. No masses or organomegaly. No suprapubic tenderness to palpation. No CVA tenderness. EXTREMITIES: Left upper extremity edema. Bilateral lower extremity edema. Left foot with reddish-purple discoloration with 3+ edema and tender to palpation. NEUROLOGIC: No focal deficits. LABORATORY DATA: White blood cell count 12.5, hemoglobin 9.5, hematocrit 25.5, platelets 147. Sodium 133, potassium 2.4, chloride 95, bicarb 33, BUN 4, creatinine 0.45. ASSESSMENT: A 63-year-old female with hematuria, status post transurethral resection of bladder tumor and diagnostic laparoscopy for pelvic mass. PLAN: From a urologic standpoint, the patient is doing well. Her hematuria has resolved. She is voiding well. Nursing had already been notified about her increase in left lower extremity swelling and pain. An ultrasound will be performed later today. Pathology from [facility] is pending. Job ID: [id number]
[2019-04-16] MEDS: Cefepime 2 GM in Sodium Chloride 0.9% 100 ML IVPB SCH ×3 (01:40→17:27)
[2019-04-16] MEDS: metroNIDAZOLE 500 MG in Premix Bag 1 BAG IVPB SCH ×3 (06:37→22:01)
[2019-04-16] MEDS: Acetaminophen 500 MG TAB PO PRN (06:46)
[2019-04-16 06:56] LABS: #Basophils 0.1 thou/uL (0.0-0.2); #Eosinphils 0.2 thou/uL (0.0-0.7); #Lymphocytes 2.9 thou/uL (1.20-3.40); #Monocytes 1.5 thou/uL (0.11-0.59); #Neutrophils 7.1 thou/uL (1.40-6.50); %Basophils 0.7 % (0.0-1.0); %Eosinophils 1.7 % (0.0-10.0); %Lymphocytes 24.7 % (21.0-51.0); %Monocytes 12.6 % (0.0-10.0); %Neutrophils 60.4 % (42.0-75.0); Hemoglobin 8.4 g/dL (12.0-16.0); Mean Corpuscular Hemoglobin 34.8 pg (27.0-31.0); Platelet Count 199 thou/uL (130-400); RBC Distribution Width 12.9 % (11.5-14.5); Red Blood Cell (RBC) Count 2.41 mill/uL (4.20-5.40); White Blood Cell (WBC) Count 11.8 thou/uL (4.8-10.8)
[2019-04-16 07:19] LABS: Anion Gap 10 mmol/L (10-20); BUN (Urea Nitrogen) Less than 4 mg/dL (9.8-20.1); Calc. Creatinine Clearance 112 mL/min (70-130); Calcium 7.9 mg/dL (7.8-10.44); Carbon Dioxide 29 mmol/L (23-31); Chloride 94 mmol/L (98-107); Estimated GFR-MDRD Greater than 90; Glucose 87 mg/dL (80-115); Sodium 131 mmol/L (136-145)
[2019-04-16 07:23] LABS: Potassium 2.4 mmol/L (3.5-5.1)
[2019-04-16] MEDS: Multivitamins, Adult 10 ML in Sodium Chloride 0.9% 500 ML IV SCH (09:00)
[2019-04-16] MEDS: Spironolactone 25 MG TAB PO SCH ×2 (09:00→21:59)
[2019-04-16] MEDS ORDERED: Spironolactone 25 MG TAB PO SCH (09:00)
[2019-04-16] MEDS: Potassium Chloride 20 MEQ TAB PO SCH ×4 (09:00→21:57)
[2019-04-16] MEDS: Estrogens, Conjugated 30 GM TUBE VAG SCH ×2 (09:01→22:00)
[2019-04-16] MEDS: Enoxaparin Sodium 40 MG/0.4 ML SYRINGE SC SCH (09:01)
[2019-04-16] MEDS: Thiamine HCl 200 MG/2 ML VIAL IM SCH (09:01)
--- NOTE | 2019-04-16 13:35 | CON ---
DATE OF CONSULTATION: HISTORY OF PRESENT ILLNESS: This is a 63-year-old lady, whose history has been fairly well delineated, presenting with obtundation and known alcoholism with inebriation the night before. She was noted to be significantly anemic on presentation and workup, eventually led to a laparoscopy showing no significant intra-abdominal findings. However, cystoscopy revealed a large tumor in the bladder and pathology is pending at this time to determine whether it is a primary bladder tumor or something else. She was noted to have a DVT in the left upper extremity, possibly related to a central line, which was needed and probably also related to her underlying malignancy. She has also had swelling and discoloration in the left foot, and an ultrasound yesterday demonstrated clot in the posterior tibial vein. At this time, I have been asked to evaluate her for consideration of a vena cava filter. PAST MEDICAL HISTORY: Includes some noncompliance issues. SOCIAL HISTORY: She is a former smoker, but not currently. She does drink daily. She is and accompanied by her . PAST SURGICAL HISTORY: Includes a hysterectomy and D and C. MEDICATIONS: She was on no long-term medications prior to admission. PHYSICAL EXAMINATION: GENERAL: On examination she is alert, cooperative lady, small statured. Examination reveals some mild swelling in the left upper extremity. VITAL SIGNS: 5 feet 2 inches, 130 pounds. Blood pressure is 120/70, heart rate is 80. LUNGS: Clear to auscultation anteriorly. CARDIAC: Regular rate and rhythm. ABDOMEN: Obese, nontender. EXTREMITIES: She has some mild swelling in the left lower extremity, which is elevated on a pillow and she has some bluish discoloration of the forefoot and some of the toes. She has easily palpable dorsalis pedis pulses bilaterally and trace edema on the right leg less than the left leg. IMAGING STUDIES: Her CT angiogram of her abdomen has been reviewed as well as her vascular ultrasounds demonstrating a clot in the left upper extremity and the left posterior tibial vein. Right lower extremity ultrasound was not performed. PLAN: At this time, anticoagulation would be the first option given the fact that she has left upper extremity DVT and a filter would offer little advantage to there. The fact that her DVT is isolated to her posterior tibial vein, probably makes significant pulmonary embolism relatively low risk at the present time. We will await her pathology findings. If she will ultimately need major surgery for her bladder tumor, then a filter maybe needed. If she has a lymphoma as the primary diagnosis, full-dose anticoagulation maybe a better option, if the Urology Service feels that it is safe at this time to proceed with that. I have also discussed the issue of alcoholism and noncompliance with the patient and family, and although I do not know them well, they seem to think that they can take anticoagulation. Job ID: [id number]
[2019-04-16] MEDS: Enoxaparin Sodium 80 MG/0.8 ML SYRINGE SC SCH (21:57)
--- NOTE | 2019-04-16 23:38 | CON ---
DATE OF CONSULTATION: 04/16/2019 BRIEF HISTORY: Ms. Rosette Noyola is a 63-year-old white female who presented to emergency department on 04/08/2019, with the combination of gross hematuria and altered mental status. She was found down at home by her , had signs indicative of dehydration and admission with elevated serum lactate and high urine gravity at admission. The patient was markedly tachycardic and underwent resuscitation in the Intensive Care Unit. The patient's personal history of substance use is significant for 50 alcohol units consumed per week. The patient had evaluation due to swelling of her bladder suggestive of bladder cancer and concern for extension into the patient's abdomen from the mass. She underwent initially a laparoscopic evaluation by Dr. Atul Wilkerson on 04/11/2019, and in addition to that, also underwent transurethral resection of the bladder lesion. The pathology for this still remains pending. The cytology from the patient's abdominal fluid did not reveal the presence of any cancer cells. The patient did have a persistently elevated white count, which initially gave the impression of a possible white cell malignancy. However, this has improved over the last few days. She also developed several occluded blood vessels mostly on the left side of her body. She has small vessels with clots in her left arm and her left leg. The patient has undergone evaluation by Dr. Miller for possible IVC filter, which he thinks is not indicated at this point, and I am in agreement. PHYSICAL EXAMINATION: VITAL SIGNS: The patient is afebrile, temperature is 98.4, pulse 80, respirations 16, O2 saturation on room air is 98%, blood pressure is 118/71. GENERAL: This is a pleasant white female, in no apparent distress. She is seen supine in her hospital bed. She is on isolation precautions for C. diff. HEAD, EYES, EARS, NOSE, AND THROAT: Extraocular movements are intact. Sclerae anicteric. Oropharynx is clear. NECK: Supple. LUNGS: Clear to auscultation bilaterally. CARDIAC: Regular rate and rhythm without murmur, rub, or gallop. ABDOMEN: Moderately distended. Bowel sounds are heard on auscultation. There is no suprapubic tenderness. The patient had a small amount of bruising from the laparoscopy sites, but other than this appears otherwise normal. The left arm is moderately swollen as is the left leg. The patient has a subclavian central line in place. : Pratt catheter is out. Urine is looking clear today. LABORATORY STUDIES: The patient's white count is markedly reduced down to 11,800 from admission values in the 23 range. The hemoglobin is 8.4 with hematocrit of 25.5. These show a gradual drift downward from admission and a generalized anemia associated with probable resuscitation fluid and possibly bleeding into tissue. The patient's neutrophil percentage is reduced now down to 60.4. The ANC is also reduced to 7,100 from 17,100 earlier in the week. I's and O's, the patient is making good amounts of urine and is now in a diuresis phase producing more as output than intake by about 600 mL. LABORATORY STUDIES: Peritoneal fluid shows only mesothelial cells and no signs of infection. There are some moderate white blood cells seen. RBCs are also observed. Urine culture negative x48 hours. ASSESSMENT: No clear evidence of infectious process for the patient's current presentation initially with marked neutrophilia, which lasted for days. This is possibly related to some bleeding event in some part of her body, possibly even around the patient's bladder. Concern for bladder tumor, the patient did undergo transurethral resection of the urothelium and approximately 10 cm of bladder lining was resected. Pathology remains pending on this tissue. Cytology from the fluid aspirated from the patient's abdomen does not appear to involve significant infective process. DVT, blood clots of some small veins in the patient's left arm and left leg. The patient is currently on 40 mg of Lovenox subcu twice daily and we would ramp that up to 80 mg today. She is not having hematuria on the half dose, so we will put her on the full dose today and see what happens. She is able to tolerate this. We may consider transition to Xarelto when her operative plans are known. Job ID: [id number]
[2019-04-17] MEDS: Cefepime 2 GM in Sodium Chloride 0.9% 100 ML IVPB SCH ×3 (02:41→16:29)
[2019-04-17] MEDS: metroNIDAZOLE 500 MG in Premix Bag 1 BAG IVPB SCH ×3 (05:27→21:08)
[2019-04-17 06:59] LABS: #Basophils 0.1 thou/uL (0.0-0.2); #Eosinphils 0.2 thou/uL (0.0-0.7); #Lymphocytes 2.9 thou/uL (1.20-3.40); #Monocytes 1.5 thou/uL (0.11-0.59); #Neutrophils 6.5 thou/uL (1.40-6.50); %Eosinophils 1.8 % (0.0-10.0); %Lymphocytes 26.1 % (21.0-51.0); %Neutrophils 58.1 % (42.0-75.0); Hemoglobin 8.4 g/dL (12.0-16.0); Mean Corpuscular HGB CONC 32.8 g/dL (32.0-36.0); Mean Corpuscular Hemoglobin 34.6 pg (27.0-31.0); Platelet Count 248 thou/uL (130-400); Red Blood Cell (RBC) Count 2.43 mill/uL (4.20-5.40); White Blood Cell (WBC) Count 11.2 thou/uL (4.8-10.8)
[2019-04-17 07:04] LABS: Anion Gap 10 mmol/L (10-20); BUN (Urea Nitrogen) Less than 4 mg/dL (9.8-20.1); Calc. Creatinine Clearance 126 mL/min (70-130); Calcium 7.5 mg/dL (7.8-10.44); Carbon Dioxide 28 mmol/L (23-31); Chloride 98 mmol/L (98-107); Estimated GFR-MDRD Greater than 90; Glucose 86 mg/dL (80-115); Sodium 133 mmol/L (136-145)
[2019-04-17] MEDS: Spironolactone 25 MG TAB PO SCH ×2 (07:53→21:07)
[2019-04-17] MEDS: Potassium Chloride 20 MEQ TAB PO SCH ×3 (07:53→21:07)
[2019-04-17] MEDS: Enoxaparin Sodium 80 MG/0.8 ML SYRINGE SC SCH ×2 (08:04→21:08)
[2019-04-17] MEDS: Thiamine HCl 200 MG/2 ML VIAL IM SCH (08:08)
[2019-04-17] MEDS: Estrogens, Conjugated 30 GM TUBE VAG SCH ×2 (08:08→21:09)
[2019-04-17] MEDS ORDERED: Artificial Tears 18 DROP/0.9 ML EA EYE PRN (09:48)
[2019-04-17] MEDS: Multivitamins, Adult 10 ML in Sodium Chloride 0.9% 500 ML IV SCH (11:48)
--- NOTE | 2019-04-17 23:06 | CON ---
DATE OF CONSULTATION: DATE OF PROGRESS NOTE: 04/17/2019 DATE OF ORIGINAL CONSULTATION: 04/08/2019 BRIEF HISTORY: Ms. Rosette Chance is a 63-year-old white female with a bladder mass and initial presentation notable for gross hematuria and altered mental status. She was admitted via the emergency department on 04/08/2019. She was found down in the a.m. hours of 04/08/2019 by her and the patient was brought in for evaluation. She presented with signs of tachycardia with elevated white count in the range of 20,000 or so. The patient has had management for delirium tremens due to her personal history of 50 alcohol units consumed per week. The patient has been doing well over the last 24 hours or so. We have been ramping up anticoagulation on her, which we have been a little cautious with due to the fact that her bladder was recently resected and she presented with gross hematuria. The patient is on full dose anticoagulation using Lovenox at the present time and has been tolerating that without undue bleeding. We are considering transition to Xarelto. Other interval events, the patient's bladder tumor was evaluated in pathology and I have discussed the case with Dr. 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 This probably will take a number of days or even weeks to get a final answer. PHYSICAL EXAMINATION: VITAL SIGNS: The patient remains afebrile with temperature of 98.7, pulse 94, respirations 18, O2 saturations 98% on room air, blood pressure is 106/69. HEAD, EARS, NOSE, AND THROAT: Extraocular movements are intact. Sclerae anicteric. Oropharynx is clear. NECK: Supple. LUNGS: Clear to auscultation bilaterally. CARDIAC: Regular rate and rhythm. ABDOMEN: Soft and nontender. Bowel sounds are heard on auscultation. EXTREMITIES: The patient's left arm has some existing swelling to it as does the left lower extremity. A central line remains in place. LABORATORY STUDIES: [place] [address]. The patient's hemoglobin is 8.4 with hematocrit of 25.6. The patient has 58% neutrophils, improved from admission. The absolute neutrophil count is fine in the normal range today at 6500. Anatomic pathology from the patient's transurethral resection became available today and this shows the presence of atypical vascular lesion, which on microscopic analysis shows cytologic atypia that appears to be reactive in the superficial tissue and some hyperplastic tissues superficially as well. Underlying stroma contains many atypical cells, some with round nuclei, sometimes multiple nuclei within the same cell. Notation of atypical mitoses are also seen. Most of the vascular structures have open lumens, which are congested with an RBCs. Based on transurethral resection, this would fit with the purple or vascular-type lesion observed. ASSESSMENT: 1. Anticoagulation status. The patient has blood clots in the left arm and in the left lower extremity. Needs to be on anticoagulation due to this. 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 The patient is on full-dose Lovenox at present and we are considering transition to Xarelto or other anticoagulation oral medication if there is no further bleeding. 2. Tumor bladder pathology at the present time is unable to provide adequate direction with her bladder lesion findings. Based on the depth of this tumor, which to my resection, appeared to invade muscular layers of the bladder, the patient would need a radical cystectomy and ileal conduit if this is an actual malignancy. I think we should wait on the final pathology report before deciding on a course of action. It is possible that this type of lesion might respond to external beam radiation therapy or even chemotherapeutic agents and those issues need to be discussed probably in Tumor Board. 3. Infectious disease concerns. So far, no cultured organisms, although the patient's white count has come into the normal range on antibiotic therapy. 4. Clostridium difficile positive status without Clostridium difficile toxin. The patient should remain on appropriate enteric precautions. Over 35 minutes of consultation, coordination of care time was spent today including discussions with Dr. Dudley and Dr. Sergey Burgos. Job ID: [id number]
[2019-04-18] MEDS: Cefepime 2 GM in Sodium Chloride 0.9% 100 ML IVPB SCH ×3 (01:33→15:58)
[2019-04-18] MEDS: metroNIDAZOLE 500 MG in Premix Bag 1 BAG IVPB SCH ×3 (05:31→20:08)
[2019-04-18 05:41] LABS: #Basophils 0.1 thou/uL (0.0-0.2); #Eosinphils 0.3 thou/uL (0.0-0.7); #Monocytes 1.3 thou/uL (0.11-0.59); #Neutrophils 4.3 thou/uL (1.40-6.50); %Basophils 1.3 % (0.0-1.0); %Eosinophils 3.6 % (0.0-10.0); %Lymphocytes 33.2 % (21.0-51.0); %Monocytes 13.9 % (0.0-10.0); %Neutrophils 47.9 % (42.0-75.0); Hemoglobin 8.3 g/dL (12.0-16.0); Mean Corpuscular HGB CONC 32.3 g/dL (32.0-36.0); Mean Corpuscular Hemoglobin 34.5 pg (27.0-31.0); Mean Platelet Volume 6.7 fL (7.4-10.4); Platelet Count 323 thou/uL (130-400); Red Blood Cell (RBC) Count 2.41 mill/uL (4.20-5.40)
[2019-04-18 06:04] LABS: Anion Gap 8 mmol/L (10-20); BUN (Urea Nitrogen) Less than 4 mg/dL (9.8-20.1); Calc. Creatinine Clearance 129 mL/min (70-130); Calcium 7.9 mg/dL (7.8-10.44); Carbon Dioxide 29 mmol/L (23-31); Chloride 99 mmol/L (98-107); Estimated GFR-MDRD Greater than 90; Glucose 89 mg/dL (80-115); Potassium 3.4 mmol/L (3.5-5.1); Sodium 133 mmol/L (136-145)
[2019-04-18] MEDS: Enoxaparin Sodium 80 MG/0.8 ML SYRINGE SC SCH (07:56)
[2019-04-18] MEDS: Thiamine HCl 200 MG/2 ML VIAL IM SCH (08:04)
[2019-04-18] MEDS: Estrogens, Conjugated 30 GM TUBE VAG SCH ×2 (08:06→20:07)
[2019-04-18] MEDS: Spironolactone 25 MG TAB PO SCH ×2 (08:10→20:06)
[2019-04-18] MEDS: Potassium Chloride 20 MEQ TAB PO SCH ×4 (09:05→20:07)
[2019-04-18] MEDS: Rivaroxaban 10 MG TAB PO SCH (09:07)
[2019-04-18] MEDS: Multivitamins, Adult 10 ML in Sodium Chloride 0.9% 500 ML IV SCH (11:59)
[2019-04-18 14:41] VITALS: BMI 27.6
[2019-04-19] MEDS: Cefepime 2 GM in Sodium Chloride 0.9% 100 ML IVPB SCH (01:20)
[2019-04-19] MEDS: metroNIDAZOLE 500 MG in Premix Bag 1 BAG IVPB SCH (05:30)
[2019-04-19 06:38] LABS: #Basophils 0.2 thou/uL (0.0-0.2); #Eosinphils 0.3 thou/uL (0.0-0.7); #Lymphocytes 2.6 thou/uL (1.20-3.40); #Monocytes 1.1 thou/uL (0.11-0.59); #Neutrophils 4.4 thou/uL (1.40-6.50); %Basophils 1.8 % (0.0-1.0); %Eosinophils 3.5 % (0.0-10.0); %Lymphocytes 30.9 % (21.0-51.0); %Monocytes 12.9 % (0.0-10.0); %Neutrophils 50.9 % (42.0-75.0); Hemoglobin 8.3 g/dL (12.0-16.0); Mean Corpuscular HGB CONC 31.8 g/dL (32.0-36.0); Mean Platelet Volume 6.6 fL (7.4-10.4); Platelet Count 377 thou/uL (130-400); Red Blood Cell (RBC) Count 2.43 mill/uL (4.20-5.40); White Blood Cell (WBC) Count 8.6 thou/uL (4.8-10.8)
[2019-04-19 07:01] LABS: Anion Gap 7 mmol/L (10-20); BUN (Urea Nitrogen) Less than 4 mg/dL (9.8-20.1); Calc. Creatinine Clearance 124 mL/min (70-130); Calcium 8.2 mg/dL (7.8-10.44); Carbon Dioxide 30 mmol/L (23-31); Chloride 99 mmol/L (98-107); Estimated GFR-MDRD Greater than 90; Glucose 83 mg/dL (80-115); Potassium 3.7 mmol/L (3.5-5.1); Sodium 132 mmol/L (136-145)
[2019-04-19 07:40] VITALS: BP 107/71; TEMP 98.5
[2019-04-19] MEDS: Rivaroxaban 10 MG TAB PO SCH (09:32)
[2019-04-19] MEDS: Potassium Chloride 20 MEQ TAB PO SCH (09:33)
[2019-04-19] MEDS: Spironolactone 25 MG TAB PO SCH (09:33)
[2019-04-19] MEDS: Estrogens, Conjugated 30 GM TUBE VAG SCH (09:35)
== END 2019-04-19 11:07 | disposition home or self-care (01) | DRG 853 ==
LOC: ERS 11:11 → CCU 15:07 → T4-B 04-10 17:01
PROVIDERS: ADMIT Specialist; ATTEND Specialist
PROC: 0TBB8ZZ Excision of Bladder, Via Natural or Artificial Opening Endoscopic (ICD-10-PCS; principal; 2019-04-11)
PROC: 0W9G4ZZ Drainage of Peritoneal Cavity, Percutaneous Endoscopic Approach (ICD-10-PCS; 2019-04-11)
DX: A41.9 Sepsis, unspecified organism (principal); G93.41 Metabolic encephalopathy; N17.0 Acute kidney failure with tubular necrosis; N39.0 Urinary tract infection, site not specified; E87.1 Hypo-osmolality and hyponatremia; K92.2 Gastrointestinal hemorrhage, unspecified; D62 Acute posthemorrhagic anemia; R18.8 Other ascites; I82.622 Acute embolism and thrombosis of deep veins of left upper extremity; E78.5 Hyperlipidemia, unspecified; F41.9 Anxiety disorder, unspecified; F10.20 Alcohol dependence, uncomplicated; R31.0 Gross hematuria; E83.39 Other disorders of phosphorus metabolism; E83.42 Hypomagnesemia; D49.4 Neoplasm of unspecified behavior of bladder; D72.0 Genetic anomalies of leukocytes; M79.672 Pain in left foot; R35.0 Frequency of micturition; Z91.19 Patient's noncompliance with other medical treatment and regimen; Z90.710 Acquired absence of both cervix and uterus; Z87.891 Personal history of nicotine dependence
CPT/HCPCS: 36415; 51701; 70450; 71045; 72194; 74176; 74177; 75635; 80048; 80053; 80306; 80307; 81003; 81015; 82140; 82274; 82533; 82607; 82746; 83605; 83615; 83735; 84100; 84443; 84484; 84550; 85025; 85610; 85730; 87040; 87070; 87086; 87205; 87324; 87449; 87493; 88112; 88184; 88305; 88307; 88341; 88342; 93005; 93306; 96361; 96365; 96367; 96375; 96376; A4353; C1751; J0692; J1630; J1650; J2001; J2060; J2405; J2550; J2704; J3010; J3370; J3411; J3475; J3480; J3490; J7050; Q9966; Q9967

== ENCOUNTER 2019-05-14 14:25 | Outpatient (CLI) | payer MEDICARE, OTHER ==
--- NOTE | 2019-05-14 16:11 | MRI ---
MRI BRAIN WITHOUT CONTRAST: Indications: Neurological change. Assess for stroke. Correlation: CT head 04-08-19 FINDINGS: Mild cortical volume loss. There are scattered white matter hyperintensities consistent with mild chr onic ischemic white matter change. No evidence of restricted diffusion. No evidence of acute or subac [place] infarct. No mass or edema. The intracranial internal carotid arteries and cerebral arteries show expected flow voids. Mild mucosal edema in the maxillary sinuses. IMPRESSION: Mild to moderate cortical volume loss. Mild chronic ischemic white matter change. No acute abnormalit y. POS: DRAGAN
== END 2019-05-14 14:26 | disposition home or self-care (01) ==
LOC: SCSMRI 14:25
PROVIDERS: ATTEND Internal Medicine Hematology & Oncology
DX: I63.9 Cerebral infarction, unspecified (principal); I82.890 Acute embolism and thrombosis of other specified veins
CPT/HCPCS: 70551

== ENCOUNTER 2019-07-01 14:15 | Inpatient (IN) | payer MEDICARE, OTHER ==
[~2019-07-01 14:15] MED LIST: ISOVUE-370 76%-LOCM 1 ML ONE
[2019-07-01 14:48] LABS: #Basophils 0.1 thou/uL (0.0-0.2); #Eosinphils 0.4 thou/uL (0.0-0.7); #Lymphocytes 2.9 thou/uL (1.20-3.40); #Monocytes 1.3 thou/uL (0.11-0.59); #Neutrophils 8.2 thou/uL (1.40-6.50); %Basophils 0.8 % (0.0-1.0); %Eosinophils 3.1 % (0.0-10.0); %Lymphocytes 22.3 % (21.0-51.0); %Monocytes 9.8 % (0.0-10.0); %Neutrophils 64.1 % (42.0-75.0); Hemoglobin 13.6 g/dL (12.0-16.0); Mean Corpuscular HGB CONC 32.5 g/dL (32.0-36.0); Mean Corpuscular Hemoglobin 32.5 pg (27.0-31.0); Mean Platelet Volume 6.6 fL (7.4-10.4); Platelet Count 320 thou/uL (130-400); Red Blood Cell (RBC) Count 4.17 mill/uL (4.20-5.40); White Blood Cell (WBC) Count 12.8 thou/uL (4.8-10.8)
--- NOTE | 2019-07-01 14:51 | RAD ---
EXAM: Portable chest PROVIDED CLINICAL HISTORY: Nausea and vomiting COMPARISON: 04/12/2019 FINDINGS: Cardiac and mediastinal silhouette is within normal limits. No focal consolidation, pleural fluid or pneumothorax evident. IMPRESSION: No evidence for an acute cardiopulmonary process.
[2019-07-01 15:10] LABS: ALT (SGPT) 12 U/L (8-55); AST (SGOT) 28 U/L (5-34); Albumin 3.2 g/dL (3.4-4.8); Alkaline Phosphatase 80 U/L (40-150); Anion Gap 22 mmol/L (10-20); BUN (Urea Nitrogen) 5 mg/dL (9.8-20.1); Bilirubin, Total 0.4 mg/dL (0.2-1.2); CK (CPK) 39 U/L (29-168); Calc. Creatinine Clearance 0 mL/min (70-130); Calcium 8.8 mg/dL (7.8-10.44); Carbon Dioxide 16 mmol/L (23-31); Chloride 93 mmol/L (98-107); Estimated GFR-MDRD 87; Globulin 3.6 g/dL (2.4-3.5); Glucose 130 mg/dL (80-115); Lipase 37 U/L (8-78); Potassium 3.1 mmol/L (3.5-5.1); Protein, Total 6.8 g/dL (6.0-8.3); Sodium 128 mmol/L (136-145)
[2019-07-01 15:23] LABS: Bilirubin 1+ (Negative); Blood, Urine 2+ (Negative); Clarity Turbid (Clear); Glucose, Urine (Dipstick) 30 mg/dL (Negative); Leukocyte 500 Leu/uL (Negative); Nitrite Negative (Negative); Protein, Urine (Dipstick) 100 mg/dL (Neg-Trace); RBC/HPF 21-50 HPF (0-3); WBC/HPF Greater than 50 HPF (0-3)
[2019-07-01 15:28] LABS: Bacteria/HPF None Seen HPF (None Seen)
[2019-07-01 15:29] LABS: Calcium Oxalate Crystals 2+ HPF (None Seen); Mucous/LPF 2+ LPF (<2+)
--- NOTE | 2019-07-01 15:44 | CT ---
EXAM: CT Abdomen Pelvis W Con PROVIDED CLINICAL HISTORY: Abdominal pain, history of inflammatory bowel disease COMPARISON: 04/08/2019 FINDINGS: The visualized lung bases are free of significant opacity. The liver, spleen, pancreas, kidneys and adrenal glands appear unremarkable. There is diffuse mural thickening and mucosal enhancement involving the colon. There is no evidence f or bowel obstruction. No inflammatory fat stranding, free fluid or free air apparent. The appendix appears normal. Scattered vascular calcifications are seen. The osseous structures demonstrate no concerning lytic or blastic lesions. IMPRESSION: Pancolitis.
[2019-07-01] MEDS ORDERED: Potassium Chloride 20 MEQ TAB ONE (16:24)
[2019-07-01] MEDS ORDERED: metroNIDAZOLE 500 MG/100 ML BAG ONE (16:24)
[2019-07-01] MEDS ORDERED: MEROPENEM 1 GM/50 ML 1 GM in Premix Bag 1 BAG IVPB SCH (16:30)
[2019-07-01] MEDS ORDERED: Sodium Chloride 0.9% 1,000 ML IV SCH (17:22)
[2019-07-01] MEDS ORDERED: Ondansetron ODT 4 MG TAB SL PRN (17:22)
[2019-07-01] MEDS ORDERED: Ondansetron PF 4 MG/2 ML Vial IVP PRN (17:22)
[2019-07-01 17:56] VITALS: BMI 22.6
[2019-07-01] MEDS ORDERED: Zolpidem Tartrate 5 MG TAB PO PRN (20:18)
[2019-07-01] MEDS ORDERED: Acetaminophen 500 MG TAB PO PRN (20:19)
[2019-07-01] MEDS ORDERED: Potassium Chloride 20 MEQ TAB PO SCH (21:00)
[2019-07-01] MEDS: metroNIDAZOLE 500 MG TAB PO SCH (21:12)
[2019-07-01] MEDS: NS 0.9% w/ 20 MEQ KCL 1,000 ML IV SCH (21:13)
[2019-07-01] MEDS ORDERED: metroNIDAZOLE 500 MG in Premix Bag 1 BAG IVPB SCH (23:59)
[2019-07-02 00:06] LABS: Hemoglobin 11.1 g/dL (12.0-16.0)
[2019-07-02] MEDS ORDERED: MEROPENEM 1 GM/50 ML 1 GM in Premix Bag 1 BAG IVPB SCH (02:00)
--- NOTE | 2019-07-02 02:55 | HP ---
CHIEF COMPLAINT ON ADMISSION: GI bleed. HISTORY OF PRESENT ILLNESS: The patient is a 64-year-old female who was noted earlier today to start passing bright red bloody clots from her rectum. She had been placed on Eliquis due to history of multiple blood clots in the past. She had seen Dr. Munoz for this earlier this summer and had been on Eliquis since April. She has a history of colitis and irritable bowel syndrome. Recently, it had good response to Viberzi, but had noted this flare up most recently. Apparently, when she woke up this morning, began to feel lightheaded and dizzy on standing. She felt that she lost enough blood, she wanted to go to the emergency room. There in the ER, she was found by exam to have profuse blood per rectum and put into hospital for further evaluation. CT scan of her abdomen revealed pancolitis. She has previously been seen by [facility] and will be seen by them again. PAST MEDICAL HISTORY: Significant for hyperlipidemia, high cholesterol. She has had a previous blood clot in her left arm. 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 Her blood clots have also been in her leg. There is an extensive history of alcoholism and noncompliance with medical care. PAST SURGICAL HISTORY: Includes hysterectomy, D and C, and most recently removal of bladder tumor, that was a vascular neoplasm. PSYCHIATRIC HISTORY: Includes anxiety, alcohol abuse, and depression. SOCIAL HISTORY: She is . A former smoker. Continues to drink socially and has been on and off hospice. ALLERGIES: SHE HAS NO KNOWN DRUG ALLERGIES. MEDICATIONS: On admission include; 1. Zoloft 50 mg a day. 2. Viberzi 74 mg every other day. 3. Eliquis 5 mg b.i.d. REVIEW OF SYSTEMS: CONSTITUTIONAL: The patient denies any recent fever, chills , colds, fatigue, malaise. 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 HEENT: No drainage from eyes, ears, nose, or throat or lesions in conjunctiva. CHEST: Denies shortness of breath or coughing. CARDIOVASCULAR: Denies palpitations or chest pain. ABDOMEN: Denies nausea, vomiting, or diarrhea. : Denies dysuria, but admits to blood in stool and some in urine. MUSCULOSKELETAL: Denies aches or pains. SKIN: No new rashes, lesions, or bruising. NEUROLOGIC: Admits to the dizziness especially with standing that brought her to the ER. Denies headaches, blurred vision, trouble with mentation. PHYSICAL EXAMINATION: VITAL SIGNS: At the time of admission, blood pressure 129/78, pulse 108, respirations 18, O2 saturation 98% on room air, temperature 98.6. No pain. GENERAL: This is a well-developed, well-nourished, elderly female, alert, oriented, and cooperative. HEENT: Normocephalic, atraumatic. Pupils are equal, round, and reactive to light. Extraocular muscles are intact. Arcus senilis bilaterally. TMs, nares and pharynx are clear. NECK: Supple. Trachea midline. CHEST: Clear to auscultation. BREASTS: Deferred. HEART: Regular rate and rhythm without murmur. ABDOMEN: Soft, nontender without hepatosplenomegaly. : Deferred except for a Hemoccult positive exam per the ER physician. EXTREMITIES: Without clubbing, cyanosis, or edema. Normal range of motion present. SKIN: Without acute rashes or lesions. NEUROLOGIC: Cranial nerves are intact. Gait and cerebellar function are untested at this time. Sensory exam is grossly intact. Mental status is at baseline. LABORATORY WORK: Thus far showed WBC 12.8, hemoglobin 13.6, hematocrit 41.8 with platelets at 320. Sodium is 128, potassium 3.1, chloride 16, BUN 5, creatinine 0.8 with a GFR of 87, glucose 130, lipase 37. Albumin is low. Troponins are negative. BNP is at 95. Urine shows 4+ urobilinogen, 500 leukocyte esterase, wbc's greater than 50. Chest x-ray shows no acute disease and the CT scan of abdomen shows pancolitis. ASSESSMENT: 1. Pancolitis with hematochezia. 2. Hyponatremia. 3. Hypokalemia. 4. Urinary tract infection. 5. Previous history of deep venous thromboses and hypercoagulable state. PLAN: We will hold the Eliquis. I have replenished her sodium and potassium. Consult GI for further evaluation. Keep her n.p.o. for endoscopic evaluation and serially re-evaluate her H and H for loss and the need for replacement. Currently, she is stable. Job ID: [id number] [facility]
[2019-07-02] MEDS: NS 0.9% w/ 20 MEQ KCL 1,000 ML IV SCH ×3 (05:27→19:37)
[2019-07-02 06:32] LABS: #Eosinphils 0.5 thou/uL (0.0-0.7); #Lymphocytes 2.2 thou/uL (1.20-3.40); #Monocytes 1.2 thou/uL (0.11-0.59); #Neutrophils 6.5 thou/uL (1.40-6.50); %Basophils 0.4 % (0.0-1.0); %Eosinophils 5.2 % (0.0-10.0); %Lymphocytes 21.2 % (21.0-51.0); %Monocytes 11.5 % (0.0-10.0); %Neutrophils 61.7 % (42.0-75.0); Mean Corpuscular HGB CONC 33.7 g/dL (32.0-36.0); Mean Corpuscular Hemoglobin 32.5 pg (27.0-31.0); Mean Corpuscular Volume 96.2 fL (78.0-98.0); Mean Platelet Volume 6.3 fL (7.4-10.4); Platelet Count 285 thou/uL (130-400); RBC Distribution Width 13.7 % (11.5-14.5); Red Blood Cell (RBC) Count 3.38 mill/uL (4.20-5.40); White Blood Cell (WBC) Count 10.5 thou/uL (4.8-10.8)
[2019-07-02 06:53] LABS: Anion Gap 14 mmol/L (10-20); BUN (Urea Nitrogen) 5 mg/dL (9.8-20.1); Calc. Creatinine Clearance 85 mL/min (70-130); Calcium 7.7 mg/dL (7.8-10.44); Carbon Dioxide 22 mmol/L (23-31); Chloride 99 mmol/L (98-107); Estimated GFR-MDRD Greater than 90; Glucose 89 mg/dL (80-115); Sodium 132 mmol/L (136-145)
[2019-07-02 07:02] LABS: Potassium 2.9 mmol/L (3.5-5.1)
[2019-07-02] MEDS: Potassium Chloride 20 MEQ TAB PO SCH ×2 (08:36→16:26)
[2019-07-02] MEDS: Calcium Carbonate 600 MG TAB PO SCH (08:36)
[2019-07-02] MEDS: metroNIDAZOLE 500 MG TAB PO SCH ×3 (08:37→19:37)
[2019-07-02] MEDS ORDERED: GLUCOSAMINE PO SCH (09:00)
[2019-07-02] MEDS ORDERED: CHONDROITIN COMPLEX PO SCH (09:00)
--- NOTE | 2019-07-02 12:38 | CON ---
DATE OF CONSULTATION: 07/02/2019 CHIEF COMPLAINT: Blood in the stool and diarrhea. HISTORY OF PRESENT ILLNESS: Ms. Chance is a 64-year-old woman, who came to the emergency room with persistent bloody diarrhea. She has had intermittent diarrhea that goes on 2 or 3 times a year, several times a day with loose to liquidy stools; however, for the last month, she has had increased diarrhea. She was admitted to the hospital back in April with multiple blood clots and was placed on blood thinners. She has had increase in diarrhea and intermittent blood with the stool since then. She will some times see just liquid blood and some times see brown stool mixed with liquidy blood. She states that she did take antibiotics for a couple of weeks back in April. She has been having three or four stools per day, but over the last three days, she has been having up to ten stools per day with liquidy bloody stool. She has had lower abdominal cramping for the last several days to go along with that as well. She has had no nausea or vomiting. A couple of weeks ago her primary care doctor, Dr. Burgos, gave her Viberzi for diarrhea, which she took for about 4 days, but states that it made the bleeding, cramping, and diarrhea worse, so she quit taking it. She has had no weight loss. No chest pain or shortness of breath. No fever associated with this. She did have a colonoscopy back [place] [address] Lay. This showed changes of acute colitis and exudate suggestive of C. diff colitis. She had stool that was positive for C. diff antigen. There were a few biopsies that showed some chronic changes as well. PAST MEDICAL HISTORY: Recent blood clots diagnosed back in April, depression, history of alcohol abuse, hyperlipidemia. PAST SURGICAL HISTORY: Hysterectomy, colonoscopy, D and C. FAMILY HISTORY: Negative for GI malignancy. SOCIAL HISTORY: She states that she has been on no alcohol, tobacco, or drugs recently. She previously has a history of alcohol abuse within the last few months. ALLERGIES: NO KNOWN DRUG ALLERGIES. MEDICATIONS: As an outpatient, 1. Eliquis. 2. Calcium carbonate. 3. Glucosamine. 4. Potassium. 5. Sertraline. 6. She has been on metronidazole at some point. She states that she was told she had a urinary tract infection recently. REVIEW OF SYSTEMS: Negative x10 systems reviewed, except as stated in the history of present illness. PHYSICAL EXAMINATION: VITAL SIGNS: Temperature 98.3, pulse 91, blood pressure 133/77. GENERAL: She is in no acute distress. Alert and oriented x3. HEENT: Eyes have no scleral icterus. Oropharynx is clear without lesions. NECK: There is no cervical or supraclavicular lymphadenopathy. LUNGS: Clear to auscultation bilaterally. HEART: Regular rate and rhythm without murmur. ABDOMEN: Soft, nontender, and nondistended. Bowel sounds are present. EXTREMITIES: No lower extremity edema. NEUROLOGIC: Cranial nerves are grossly intact. LABORATORY DATA: INR 1.3. Hemoglobin is 11.0. Hemoglobin back in April was 8.3. INR 1.3, creatinine 0.58, bilirubin 0.4, AST 28, ALT 12, alkaline phosphatase 80. IMPRESSION: 1. Acute worsening of chronic diarrhea and lower abdominal cramping pain. She has a history of Clostridium difficile colitis and will need rule out recurrence of Clostridium difficile. It appears that she has been receiving metronidazole and maybe got a few doses of meropenem over the last few days as well. We will check stool studies. 2. Hematochezia. Her hemoglobin is stable at 11, this is up from 8 back in April; however, she has been on Eliquis. 3. History of colonoscopy back in [address] Lay that showed some inflammatory changes mostly acute, and also, at that time associated with Clostridium difficile antigen positive; however, there was some question of chronic changes and some of the biopsies as well. We will need to plan follow up colonoscopy to rule out a chronic inflammatory process if her stool is turned out to be Clostridium difficile negative now. RECOMMENDATIONS: 1. Check stool studies including culture, ova and parasite and C difficile. 2. If the stool studies are negative, we will plan to proceed with colonoscopy for tomorrow with Dr. Lay. 3. Follow trend of the hemoglobin. 4. Her Eliquis is held. Job ID: [id number]
[2019-07-02] MEDS: GoLYTELY 4,000 ml Bottle PO SCH (18:21)
[2019-07-03] MEDS: GoLYTELY 4,000 ml Bottle PO SCH (05:48)
[2019-07-03] MEDS: NS 0.9% w/ 20 MEQ KCL 1,000 ML IV SCH ×3 (05:48→21:01)
[2019-07-03 05:53] LABS: #Basophils 0.1 thou/uL (0.0-0.2); #Eosinphils 0.7 thou/uL (0.0-0.7); #Lymphocytes 2.9 thou/uL (1.20-3.40); #Monocytes 1.3 thou/uL (0.11-0.59); #Neutrophils 5.4 thou/uL (1.40-6.50); %Basophils 1.2 % (0.0-1.0); %Eosinophils 6.6 % (0.0-10.0); %Lymphocytes 28.1 % (21.0-51.0); %Monocytes 12.6 % (0.0-10.0); %Neutrophils 51.6 % (42.0-75.0); Hemoglobin 11.8 g/dL (12.0-16.0); Mean Corpuscular Volume 97.2 fL (78.0-98.0); Mean Platelet Volume 6.2 fL (7.4-10.4); Platelet Count 306 thou/uL (130-400); RBC Distribution Width 14.1 % (11.5-14.5); Red Blood Cell (RBC) Count 3.67 mill/uL (4.20-5.40); White Blood Cell (WBC) Count 10.5 thou/uL (4.8-10.8)
[2019-07-03 06:22] LABS: Anion Gap 17 mmol/L (10-20); BUN (Urea Nitrogen) Less than 4 mg/dL (9.8-20.1); Calc. Creatinine Clearance 89 mL/min (70-130); Calcium 7.3 mg/dL (7.8-10.44); Carbon Dioxide 18 mmol/L (23-31); Chloride 102 mmol/L (98-107); Estimated GFR-MDRD Greater than 90; Glucose 72 mg/dL (80-115); Potassium 3.5 mmol/L (3.5-5.1); Sodium 133 mmol/L (136-145)
[2019-07-03] MEDS ORDERED: Ondansetron HCl/PF 8 MG in Sodium Chloride 0.9% 50 ML IVPB SCH (07:45)
[2019-07-03] MEDS: metroNIDAZOLE 500 MG TAB PO SCH ×3 (08:51→21:01)
[2019-07-03] MEDS: Potassium Chloride 20 MEQ TAB PO SCH ×2 (08:51→17:12)
[2019-07-03] MEDS: Calcium Carbonate 600 MG TAB PO SCH (08:51)
[2019-07-03] MEDS ORDERED: Ondansetron PF 4 MG/2 ML Vial IVP PRN (13:00)
[2019-07-03] MEDS ORDERED: Promethazine HCl 25 MG/ML VIAL IM PRN (18:03)
[2019-07-03] MEDS ORDERED: Ondansetron HCl/PF 4 MG/2 ML Vial IVP PRN (18:03)
[2019-07-03] MEDS ORDERED: Promethazine HCl 25 MG/ML VIAL SLOW IVP PRN (18:03)
[2019-07-03] MEDS ORDERED: Bacteriostatic Water 30 ML VIAL FS PRN (18:31)
[2019-07-03] MEDS: Mesalamine DR 400 mg Capsule PO SCH (21:00)
[2019-07-03] MEDS: methylPREDNISolone Sod Succ 40 MG VIAL IVP SCH (21:01)
[2019-07-03] MEDS ORDERED: PROPOFOL 200 MG/20 ML VIAL ONE (21:52)
[2019-07-03] MEDS ORDERED: Lidocaine 1% PF 5 ML VIAL ONE (21:52)
[2019-07-04] MEDS: NS 0.9% w/ 20 MEQ KCL 1,000 ML IV SCH ×3 (05:55→20:46)
[2019-07-04] MEDS: methylPREDNISolone Sod Succ 40 MG VIAL IVP SCH ×3 (05:55→20:48)
[2019-07-04] MEDS: metroNIDAZOLE 500 MG TAB PO SCH ×3 (08:16→20:47)
[2019-07-04] MEDS: Calcium Carbonate 600 MG TAB PO SCH (08:16)
[2019-07-04] MEDS: Potassium Chloride 20 MEQ TAB PO SCH ×2 (08:16→17:11)
[2019-07-04] MEDS: Mesalamine DR 400 mg Capsule PO SCH ×3 (08:17→20:46)
--- NOTE | 2019-07-04 09:01 | OP ---
DATE OF PROCEDURE: 07/03/2019 PREPROCEDURE DIAGNOSES: Bloody diarrhea, clostridium difficile negative, cultures negative, Campylobacter negative, lactoferrin positive, parasite screen negative. POSTPROCEDURE DIAGNOSES: 1. Normal terminal ileum. 2. Chronic colitis with granularity, edema, erythema, loss of accurate vascular pattern consists of ulcerative colitis. RECOMMENDATIONS: Check TB screen and TPMT activity level. Start IV steroids and oral 5-ASA medications. Wait biopsies. ANESTHESIA: TIVA. PROCEDURE IN DETAIL: The patient was informed of the risks, benefits, and possible complications of endoscopy including perforation, reaction to medication, and aspiration. Informed consent was obtained. The patient was brought to endoscopy suite, where she was sedated in gradual fashion. Once she was comfortable, rectal examination was performed. The endoscope was advanced to the anal canal through the colon. The cecum was identified by ileocecal valve and appendiceal orifice. The terminal ileum was noted to be normal. The remainder of the colon was notable for granularity, friability of bleeding with mucosal contact and loss of vascular pattern. There were no evidence of mass or lesions. This was confluent from the cecum to the rectum. Retroflexion was not performed secondary to inflammation in the rectum. This is likely inflammatory bowel disease. Biopsies were obtained throughout the colon and submitted to pathology. Job ID: [id number]
--- NOTE | 2019-07-04 11:44 | ULT ---
Left upper extremity venous Doppler ultrasound: 07/04/2019 COMPARISON: None HISTORY: History of deep venous thrombosis TECHNIQUE: Multiplanar grayscale sonographic imaging of the venous structures of the left upper extre mity obtained with color flow and spectral analysis FINDINGS: Left internal jugular vein, left subclavian vein, and left axillary vein are patent. There is a focal area of nonocclusive thrombus within the left basilic vein in the upper arm where there is incomplete compression and mild adjacent edematous change. The left cephalic vein and left brachia l vein are patent as is the left radial and ulnar vein. IMPRESSION: Nonocclusive focal thrombus within left basilic vein. No evidence for DVT.
[2019-07-04 17:47] LABS: Ref Lab Test Ordered TPMT ENZYME ACT; Reference Lab Name LABCORP
--- NOTE | 2019-07-04 19:39 | PRG ---
DATE OF SERVICE: 07/04/2019 SUBJECTIVE: Ms. Chance is resting in bed. She has been eating. She states she has had only about 2 to 3 bowel movements today, much less bleeding since starting the steroids. She is without complaints. OBJECTIVE: VITAL SIGNS: Otherwise, temperature is 98, pulse 86, and blood pressure 112/73. ABDOMEN: Soft and nontender. LABORATORY DATA: None. Biopsies pending. ASSESSMENT AND PLAN: Ulcerative colitis on IV steroids and 5-ASA medicines now with some improvement. She continues to improve tomorrow. Consider discharge tomorrow evening or Tuesday morning with oral steroid taper over 6 weeks and mesalamine 800 mg t.i.d. We will follow up again tomorrow with the patient. Job ID: [id number]
[2019-07-05] MEDS: NS 0.9% w/ 20 MEQ KCL 1,000 ML IV SCH ×2 (03:55→11:11)
[2019-07-05] MEDS: methylPREDNISolone Sod Succ 40 MG VIAL IVP SCH ×3 (05:15→21:18)
[2019-07-05 07:10] LABS: #Basophils 0.1 thou/uL (0.0-0.2); #Eosinphils 0.1 thou/uL (0.0-0.7); #Monocytes 1.2 thou/uL (0.11-0.59); #Neutrophils 9.2 thou/uL (1.40-6.50); %Basophils 0.6 % (0.0-1.0); %Eosinophils 0.5 % (0.0-10.0); %Lymphocytes 16.1 % (21.0-51.0); %Monocytes 9.1 % (0.0-10.0); %Neutrophils 73.6 % (42.0-75.0); Hemoglobin 11.7 g/dL (12.0-16.0); Mean Corpuscular HGB CONC 33.9 g/dL (32.0-36.0); Mean Corpuscular Hemoglobin 32.3 pg (27.0-31.0); Mean Corpuscular Volume 95.2 fL (78.0-98.0); Mean Platelet Volume 6.6 fL (7.4-10.4); Platelet Count 183 thou/uL (130-400); RBC Distribution Width 14.5 % (11.5-14.5); Red Blood Cell (RBC) Count 3.63 mill/uL (4.20-5.40); White Blood Cell (WBC) Count 12.6 thou/uL (4.8-10.8)
[2019-07-05 07:25] LABS: Anion Gap 11 mmol/L (10-20); BUN (Urea Nitrogen) 5 mg/dL (9.8-20.1); Calc. Creatinine Clearance 83 mL/min (70-130); Calcium 7.6 mg/dL (7.8-10.44); Carbon Dioxide 20 mmol/L (23-31); Chloride 107 mmol/L (98-107); Estimated GFR-MDRD Greater than 90; Glucose 116 mg/dL (80-115); Potassium 4.1 mmol/L (3.5-5.1); Sodium 134 mmol/L (136-145)
[2019-07-05] MEDS: metroNIDAZOLE 500 MG TAB PO SCH ×3 (08:14→21:18)
[2019-07-05] MEDS: Potassium Chloride 20 MEQ TAB PO SCH ×2 (08:14→18:13)
[2019-07-05] MEDS: Calcium Carbonate 600 MG TAB PO SCH (08:15)
[2019-07-05] MEDS: Mesalamine DR 400 mg Capsule PO SCH ×3 (08:59→21:18)
[2019-07-05 13:09] LABS: Bacteria/HPF None Seen HPF (None Seen); Bilirubin Negative (Negative); Blood, Urine 1+ (Negative); Clarity Clear (Clear); Glucose, Urine (Dipstick) Normal (Negative); Leukocyte 25 Leu/uL (Negative); Nitrite Negative (Negative); Protein, Urine (Dipstick) Negative (Neg-Trace); Squamous Epithelial 0-3 HPF (0-3); Urobilinogen Normal mg/dL (Less than 2); WBC/HPF 0-3 HPF (0-3)
[2019-07-06] MEDS: methylPREDNISolone Sod Succ 40 MG VIAL IVP SCH (06:07)
[2019-07-06 07:29] VITALS: BP 137/76; TEMP 97.9
--- NOTE | 2019-07-06 07:53 | PRG ---
DATE OF SERVICE: 07/05/2019 SUBJECTIVE: Ms. Chance is having less diarrhea. She has seen no blood in her stool. She feels well. MEDICATIONS: 1. Tylenol. 2. Calcium. 3. Mesalamine 800 t.i.d. 4. Solu-Medrol 40 IV q.8. 5. Flagyl 500 t.i.d. 6. Zofran. 7. Potassium. 8. Sertraline . PHYSICAL EXAMINATION: VITAL SIGNS: Temperature 98.2, pulse 86, and blood pressure 142/80. GENERAL: She is in good spirits and her is in the room with her. LUNGS: Clear. HEART: Regular rate and rhythm without clicks, rubs or murmurs. ABDOMEN: Soft and nontender. LABORATORY DATA: White count 12.6, hemoglobin 11.7, platelet count 193. Sodium 134, potassium 4.1, BUN and creatinine of 5 and 0.59, and glucose 116. Biopsies showed mild active chronic colitis. ASSESSMENT: Ms. Chance likely has mild ulcerative colitis. In 2010, she had colitis and also had C diff at that time. With treatment of the C difficile, her symptoms resolved. She had a followup colonoscopy after that. At this admission, she has finding suggestive of ulcerative colitis. Stool studies were negative for infection or C difficile. She is responding to mesalamine and IV steroids. RECOMMENDATIONS: I think she can probably go home tomorrow if she continues to improve with prednisone 40 mg p.o. q.a.m. with a taper over 6 weeks. I can write that prescription and also mesalamine 800 mg t.i.d. We will see her back in the office in 2 weeks. Job ID: [id number]
[2019-07-06] MEDS: Calcium Carbonate 600 MG TAB PO SCH (08:00)
[2019-07-06] MEDS: metroNIDAZOLE 500 MG TAB PO SCH (08:00)
[2019-07-06] MEDS: Potassium Chloride 20 MEQ TAB PO SCH (08:01)
[2019-07-06] MEDS: Mesalamine DR 400 mg Capsule PO SCH (08:02)
== END 2019-07-06 09:32 | disposition home or self-care (01) | DRG 386 ==
LOC: ERS 14:15 → T4-A 17:20
PROVIDERS: ADMIT Specialist; ATTEND Specialist
PROC: 0DBF8ZX Excision of Right Large Intestine, Via Natural or Artificial Opening Endoscopic, Diagnostic (ICD-10-PCS; principal; 2019-07-03)
PROC: 0DBN8ZX Excision of Sigmoid Colon, Via Natural or Artificial Opening Endoscopic, Diagnostic (ICD-10-PCS; 2019-07-03)
PROC: 0DBP8ZX Excision of Rectum, Via Natural or Artificial Opening Endoscopic, Diagnostic (ICD-10-PCS; 2019-07-03)
PROC: 0DBM8ZX Excision of Descending Colon, Via Natural or Artificial Opening Endoscopic, Diagnostic (ICD-10-PCS; 2019-07-03)
PROC: 0DBL8ZX Excision of Transverse Colon, Via Natural or Artificial Opening Endoscopic, Diagnostic (ICD-10-PCS; 2019-07-03)
DX: K51.011 Ulcerative (chronic) pancolitis with rectal bleeding (principal); E87.1 Hypo-osmolality and hyponatremia; N39.0 Urinary tract infection, site not specified; D68.59 Other primary thrombophilia; E87.6 Hypokalemia; E78.5 Hyperlipidemia, unspecified; E78.00 Pure hypercholesterolemia, unspecified; F10.10 Alcohol abuse, uncomplicated; F32.9 Major depressive disorder, single episode, unspecified; F41.9 Anxiety disorder, unspecified; E86.0 Dehydration; Z90.710 Acquired absence of both cervix and uterus; Z87.891 Personal history of nicotine dependence; Z91.14 Patient's other noncompliance with medication regimen; Z86.718 Personal history of other venous thrombosis and embolism; Z79.01 Long term (current) use of anticoagulants
CPT/HCPCS: 36415; 71045; 74177; 80048; 80053; 81001; 81003; 81015; 82550; 83630; 83690; 83880; 84484; 85025; 86850; 86900; 86901; 87045; 87046; 87086; 87324; 87328; 87329; 87427; 87449; 88305; 93005; 96361; 96365; J2001; J2185; J2405; J2704; J2920; J3480; Q9966

== ENCOUNTER 2023-08-11 10:01 | Emergency (ER) | payer MEDICARE, OTHER ==
[2023-08-11 11:35] LABS: #Basophils 0.1 thou/uL (0.0-0.2); #Eosinphils 0.4 thou/uL (0.0-0.7); #Monocytes 1.6 thou/uL (0.11-0.59); #Neutrophils 13.3 thou/uL (1.40-6.50); %Basophils 0.6 % (0.0-1.0); %Eosinophils 2.3 % (0.0-10.0); %Lymphocytes 7.4 % (21.0-51.0); %Monocytes 9.6 % (0.0-10.0); %Neutrophils 79.4 % (42.0-75.0); Hematocrit 40.2 % (36.0-47.0); Hemoglobin 13.7 g/dL (12.0-16.0); Mean Corpuscular HGB CONC 34.1 g/dL (32.0-36.0); Mean Corpuscular Hemoglobin 34.9 pg (27.0-31.0); Mean Corpuscular Volume 102.3 fl (78.0-98.0); Mean Platelet Volume 8.6 fL (7.4-10.4); Platelet Count 287 10x3/uL (130-400); RBC Distribution Width 12.6 % (11.5-14.5); Red Blood Cell (RBC) Count 3.93 mill/uL (4.20-5.40); White Blood Cell (WBC) Count 16.8 10x3/uL (4.8-10.8)
[2023-08-11 11:59] LABS: ALT (SGPT) 10 U/L (8-55); AST (SGOT) 22 U/L (5-34); Alkaline Phosphatase 69 U/L (40-110); Anion Gap 20 mmol/L (10-20); BUN (Urea Nitrogen) 6 mg/dL (9.8-20.1); Bilirubin, Total 0.9 mg/dL (0.2-1.2); Calc. Creatinine Clearance 0 mL/min (70-130); Carbon Dioxide 22 mmol/L (23-31); Chloride 91 mmol/L (98-107); Estimated GFR 94; Globulin 3.5 g/dL (2.4-3.5); Glucose 101 mg/dL (80-115); Potassium 3.4 mmol/L (3.5-5.1); Protein, Total 7.5 g/dL (5.8-8.1); Sodium 130 mmol/L (136-145)
[2023-08-11 13:06] LABS: Bacteria/HPF None Seen HPF (None Seen); Bilirubin 1+ (Negative); Blood, Urine 1+ (Negative); CAUTI Indications for Culture Pelvic or flank pain; Clarity Clear (Clear); Glucose, Urine (Dipstick) Normal (Negative); Ketone, Urine 80 mg/dL (Negative); Leukocyte Negative Leu/uL (Negative); Nitrite Negative (Negative); Protein, Urine (Dipstick) 20 mg/dL (Neg-Trace); Specific Gravity, Urine 1.023 (1.002-1.036); Squamous Epithelial 0-3 HPF (0-3); Urobilinogen Normal mg/dL (Less than 2); WBC/HPF 0-3 HPF (0-3)
[2023-08-11 13:11] LABS: Urine Culture Reflex No No
[2023-08-11] MEDS ORDERED: Potassium Chloride 20 MEQ TAB ONE (13:27)
[2023-08-11] MEDS ORDERED: methylPREDNISolone Sod Succ/PF 125 MG/2 ML VIAL ONE (14:11)
== END 2023-08-11 15:16 | disposition home or self-care (01) ==
LOC: ERS 10:01
DX: K51.90 Ulcerative colitis, unspecified, without complications (principal); E78.00 Pure hypercholesterolemia, unspecified; Z87.891 Personal history of nicotine dependence
CPT/HCPCS: 36415; 74177; 80053; 81001; 83605; 85025; 86850; 86900; 86901; 96361; 96374; J2930

== ENCOUNTER 2023-11-30 14:18 | Inpatient (IN) | payer MEDICARE ==
[~2023-11-30 14:18] MED LIST changes: -ISOVUE-370 76%-LOCM 1 ML ONE; +Iopamidol-370 76% 500 ML MDV (1 ML CHARGE) ONE
[2023-11-30 14:39] LABS: #Monocytes 0.5 thou/uL (0.11-0.59); %Basophils 0.2 % (0.0-1.0); %Lymphocytes 8.6 % (21.0-51.0); %Monocytes 4.4 % (0.0-10.0); %Neutrophils 86.5 % (42.0-75.0); Hemoglobin 15.3 g/dL (12.0-16.0); Mean Corpuscular HGB CONC 35.6 g/dL (32.0-36.0); Mean Corpuscular Hemoglobin 34.4 pg (27.0-31.0); Mean Corpuscular Volume 96.6 fl (78.0-98.0); Mean Platelet Volume 9.1 fL (7.4-10.4); Platelet Count 255 10x3/uL (130-400); RBC Distribution Width 11.9 % (11.5-14.5); Red Blood Cell (RBC) Count 4.45 mill/uL (4.20-5.40); White Blood Cell (WBC) Count 11.6 10x3/uL (4.8-10.8)
[2023-11-30 14:49] LABS: PTT 23.7 sec (22.9-36.1)
[2023-11-30 15:32] LABS: Albumin 4.4 g/dL (3.4-4.8)
[2023-11-30 15:33] LABS: Chloride 91 mmol/L (98-107); Sodium 125 mmol/L (136-145)
[2023-11-30 15:34] LABS: Calcium 9.3 mg/dL (7.8-10.44)
[2023-11-30 15:35] LABS: Globulin 3.6 g/dL (2.4-3.5); Glucose 132 mg/dL (80-115)
[2023-11-30 15:36] LABS: Anion Gap 18 mmol/L (10-20); Bilirubin, Total 1.1 mg/dL (0.2-1.2); Carbon Dioxide 20 mmol/L (23-31)
[2023-11-30 15:37] LABS: Alkaline Phosphatase 50 U/L (40-110)
[2023-11-30 15:38] LABS: Calc. Creatinine Clearance 0 mL/min (70-130); Estimated GFR 93; Troponin I Less than 0.010 ng/mL (< 0.028)
[2023-11-30 15:39] LABS: BUN (Urea Nitrogen) 8 mg/dL (9.8-20.1)
[2023-11-30] MEDS ORDERED: Acetaminophen 500 MG TAB ONE (15:39)
[2023-11-30] MEDS ORDERED: Magnesium 2 GM/50 ML BAG (IN WATER) ONE (15:39)
[2023-11-30] MEDS ORDERED: Prochlorperazine 10 MG/2 ML VIAL ONE (15:39)
[2023-11-30 15:40] LABS: ALT (SGPT) 12 U/L (8-55); AST (SGOT) 26 U/L (5-34)
[2023-11-30 15:41] LABS: CK (CPK) 161 U/L (29-168)
[2023-11-30 16:03] LABS: Acetaminophen Less than 10 mcg/mL (10.0-30.0); Alcohol Less than 10.0 mg/dL (Less than 10); Salicylate Less than 8.0 mg/dL (15.0-30.0)
[2023-11-30 16:09] LABS: Amphetamine Not Detected (NotDetected); Barbiturates Screen Not Detected (NotDetected); Benzodiazepine Screen Not Detected (NotDetected); Cocaine Metabolite Screen Not Detected (NotDetected); Methadone Not Detected (NotDetected); Methamphetamine Not Detected (NotDetected); Opiate Screen Not Detected (NotDetected); Oxycodone Screen Not Detected (NotDetected); Phencyclidine (PCP) Not Detected (NotDetected); THC/Cannabinoid Screen Not Detected (NotDetected); Tricyclic Screen Not Detected (NotDetected)
[2023-11-30] MEDS ORDERED: Ondansetron PF 4 MG/2 ML Vial ONE (16:12)
[2023-11-30] MEDS ORDERED: Aspirin Chewable 81 MG TAB ONE (16:13)
[2023-11-30 16:20] LABS: Bacteria/HPF None Seen HPF (None Seen); CAUTI Indications for Culture Alt mental st,lethar; Squamous Epithelial None Seen HPF (0-3); WBC/HPF 0-3 HPF (0-3)
[2023-11-30 16:22] LABS: Bilirubin Negative (Negative); Blood, Urine Moderate (Negative); Clarity Clear (Clear); Glucose, Urine (Dipstick) Negative (Negative); Ketone, Urine 40 mg/dL (Negative); Leukocyte Negative (Negative); Nitrite Negative (Negative); Protein, Urine (Dipstick) Trace mg/dL (Neg-Trace); Urobilinogen 0.2 mg/dL (Less than 2)
[2023-11-30 16:23] LABS: Urine Culture Reflex No No
[2023-11-30] MEDS ORDERED: Ondansetron PF 4 MG/2 ML Vial IVP PRN (16:43)
[2023-11-30] MEDS ORDERED: Ondansetron ODT 4 MG TAB PO PRN (16:46)
[2023-11-30] MEDS ORDERED: Lorazepam 2 MG/ML VIAL IM PRN (16:46)
[2023-11-30] MEDS ORDERED: Electrolyte Replacement Protocol 1 EACH FS SCH (17:00)
[2023-11-30] MEDS ORDERED: Multivit, Therapeutic 1 TAB ONE (21:32)
[2023-11-30] MEDS ORDERED: Thiamine HCl 200 MG/2 ML VIAL ONE (21:32)
[2023-11-30] MEDS ORDERED: Folic Acid 1 MG TAB ONE (21:32)
[2023-11-30] MEDS ORDERED: Famotidine/PF 20 mg/2ml Vial ONE (21:32)
[2023-11-30] MEDS ORDERED: Atorvastatin Calcium 40 MG TAB ONE (21:32)
[2023-11-30] MEDS ORDERED: Morphine 4 MG/ML VIAL ONE (21:47)
[2023-11-30] MEDS: Multivit, Therapeutic 1 TAB PO SCH (21:54)
[2023-11-30] MEDS: Folic Acid 1 MG TAB PO SCH (21:54)
[2023-11-30] MEDS: Atorvastatin Calcium 40 MG TAB PO SCH (21:54)
[2023-11-30] MEDS: Morphine 4 MG/ML VIAL SLOW IVP SCH (22:32)
[2023-11-30] MEDS: Thiamine HCl 200 MG/2 ML VIAL SLOW IVP SCH (22:33)
[2023-11-30] MEDS: Famotidine/PF 20 mg/2ml Vial SLOW IVP SCH (22:33)
[2023-12-01] MEDS ORDERED: Morphine 4 MG/ML VIAL ONE (02:57)
[2023-12-01] MEDS ORDERED: Ondansetron PF 4 MG/2 ML Vial ONE (02:58)
[2023-12-01] MEDS: Morphine 2 MG/ML VIAL SLOW IVP SCH (03:02)
[2023-12-01 04:53] LABS: #Monocytes 1.4 thou/uL (0.11-0.59); %Basophils 0.3 % (0.0-1.0); %Monocytes 13.3 % (0.0-10.0); %Neutrophils 66.1 % (42.0-75.0); Hematocrit 38.7 % (36.0-47.0); Hemoglobin 13.5 g/dL (12.0-16.0); Mean Corpuscular HGB CONC 34.9 g/dL (32.0-36.0); Mean Corpuscular Hemoglobin 33.8 pg (27.0-31.0); Mean Corpuscular Volume 96.8 fl (78.0-98.0); Mean Platelet Volume 9.2 fL (7.4-10.4); Platelet Count 241 10x3/uL (130-400); RBC Distribution Width 12.1 % (11.5-14.5); White Blood Cell (WBC) Count 10.5 10x3/uL (4.8-10.8)
[2023-12-01 05:15] LABS: Anion Gap 14 mmol/L (10-20); BUN (Urea Nitrogen) 12 mg/dL (9.8-20.1); Calc. Creatinine Clearance 0 mL/min (70-130); Carbon Dioxide 23 mmol/L (23-31); Cardiac Risk 2.1 (Less than 4.5); Chloride 94 mmol/L (98-107); Cholesterol 243 mg/dl (< 200 Desired); Estimated GFR 94; Glucose 122 mg/dL (80-115); HDL Cholesterol 118 mg/dL (>60 Neg Risk); LDL Cholesterol, Calculated 114 mg/dL; Potassium 3.4 mmol/L (3.5-5.1); Sodium 128 mmol/L (136-145); Triglycerides 56 mg/dL (Less than 150)
[2023-12-01] MEDS ORDERED: Potassium Chloride 20 MEQ TAB PO SCH (08:00)
[2023-12-01] MEDS ORDERED: diphenhydrAMINE 50 MG/ML VIAL IVP SCH (08:15)
[2023-12-01] MEDS ORDERED: Prochlorperazine Edisylate 10 MG in Sodium Chloride 0.9% 50 ML IVPB SCH (08:15)
[2023-12-01] MEDS ORDERED: diphenhydrAMINE 50 MG/ML VIAL ONE (09:14)
[2023-12-01] MEDS: Prochlorperazine Edisylate 10 MG in Sodium Chloride 0.9% 50 ML IVPB SCH (09:20)
[2023-12-01] MEDS: Potassium Chloride 20 MEQ TAB PO SCH (09:22)
[2023-12-01] MEDS: Enoxaparin 40 MG (0.4 mL) SYRINGE SC SCH (09:31)
[2023-12-01] MEDS: Aspirin 81 mg Enteric Coated Tablet PO SCH (09:31)
[2023-12-01] MEDS ORDERED: Aspirin Chewable 81 MG TAB ONE (09:32)
[2023-12-01] MEDS ORDERED: Potassium Chloride 20 MEQ TAB ONE (09:32)
[2023-12-01] MEDS ORDERED: Famotidine/PF 20 mg/2ml Vial ONE (09:33)
[2023-12-01] MEDS ORDERED: Enoxaparin 40 MG (0.4 mL) SYRINGE ONE (09:33)
[2023-12-01] MEDS ORDERED: Lorazepam 1 MG TAB ONE (15:01)
[2023-12-01] MEDS: Lorazepam 1 MG TAB PO PRN (15:02)
[2023-12-01] MEDS ORDERED: Lorazepam 1 MG TAB PO PRN (16:46)
[2023-12-01 16:53] VITALS: BMI 22.3
[2023-12-01] MEDS: Acetaminophen 325 MG TAB PO PRN (18:59)
[2023-12-02 14:19] LABS: Anion Gap 14 mmol/L (10-20); BUN (Urea Nitrogen) 17 mg/dL (9.8-20.1); Calc. Creatinine Clearance 67 mL/min (70-130); Calcium 9.1 mg/dL (7.8-10.44); Carbon Dioxide 24 mmol/L (23-31); Chloride 93 mmol/L (98-107); Estimated GFR 94; Glucose 92 mg/dL (80-115); Magnesium 1.8 mg/dL (1.6-2.6); Potassium 3.9 mmol/L (3.5-5.1); Sodium 127 mmol/L (136-145)
[2023-12-02 14:33] LABS: Thyroid Stimulating Hormone 3.0862 uIU/mL (0.35-4.94); Vitamin D, 25 Hydroxy 63.6 ng/ml (> 30.0)
[2023-12-02] MEDS ORDERED: Lorazepam 1 MG TAB PO PRN (16:46)
[2023-12-02] MEDS: Magnesium 2 GM/50 ML(in water) 2 GM in Premix 1 BAG IVPB SCH (22:00)
[2023-12-03 04:12] LABS: Hemoglobin A1c 5.1 % (4.0-6.0)
[2023-12-03 05:14] LABS: Anion Gap 11 mmol/L (10-20); BUN (Urea Nitrogen) 12 mg/dL (9.8-20.1); Calc. Creatinine Clearance 69 mL/min (70-130); Calcium 8.8 mg/dL (7.8-10.44); Carbon Dioxide 24 mmol/L (23-31); Chloride 95 mmol/L (98-107); Estimated GFR 94; Glucose 80 mg/dL (80-115); Potassium 3.3 mmol/L (3.5-5.1); Sodium 127 mmol/L (136-145)
[2023-12-03 08:34] LABS: Phosphorus 2.7 mg/dL (2.3-4.7)
[2023-12-03] MEDS: Potassium Chloride 20 MEQ TAB PO SCH (08:39)
[2023-12-03] MEDS: Famotidine 20 MG TAB PO SCH (08:41)
[2023-12-03] MEDS: Thiamine 100 MG TAB PO SCH (08:42)
[2023-12-03] MEDS ORDERED: Potassium Chloride 20 MEQ TAB PO SCH (11:00)
[2023-12-03 12:20] VITALS: BP 119/62; TEMP 98.2
[2023-12-03 12:53] LABS: Anion Gap 13 mmol/L (10-20); BUN (Urea Nitrogen) 19 mg/dL (9.8-20.1); Calc. Creatinine Clearance 66 mL/min (70-130); Calcium 9.2 mg/dL (7.8-10.44); Carbon Dioxide 26 mmol/L (23-31); Chloride 95 mmol/L (98-107); Estimated GFR 93; Glucose 78 mg/dL (80-115); Potassium 3.9 mmol/L (3.5-5.1); Sodium 130 mmol/L (136-145)
[2023-12-03] MEDS ORDERED: Magnesium 2 GM/50 ML(in water) 2 GM in Premix 1 BAG IVPB SCH (13:15)
[2023-12-03] MEDS ORDERED: Sodium Chloride 1 GM TAB PO SCH (15:00)
[2023-12-03] MEDS ORDERED: Lorazepam 0.5 MG TAB PO PRN (16:46)
== END 2023-12-03 15:30 | disposition home or self-care (01) | DRG 102 ==
LOC: ERS 14:18 → ERHOLD 16:16 → 2SE 16:44 → OBSVTOIN 12-01 16:25
PROVIDERS: ADMIT Internal Medicine; ATTEND Internal Medicine
PROC: HZ2ZZZZ Detoxification Services for Substance Abuse Treatment (ICD-10-PCS; 2023-11-30)
PROC: 4A00X4Z Measurement of Central Nervous Electrical Activity, External Approach (ICD-10-PCS; principal; 2023-12-01)
DX: G43.909 Migraine, unspecified, not intractable, without status migrainosus (principal); G93.41 Metabolic encephalopathy; N17.0 Acute kidney failure with tubular necrosis; E22.2 Syndrome of inappropriate secretion of antidiuretic hormone; G45.9 Transient cerebral ischemic attack, unspecified; E78.5 Hyperlipidemia, unspecified; I12.9 Hypertensive chronic kidney disease with stage 1 through stage 4 chronic kidney disease, or unspecified chronic kidney disease; N18.2 Chronic kidney disease, stage 2 (mild); F10.20 Alcohol dependence, uncomplicated; E86.0 Dehydration; D72.829 Elevated white blood cell count, unspecified; I08.0 Rheumatic disorders of both mitral and aortic valves; D63.1 Anemia in chronic kidney disease; E87.6 Hypokalemia; Z86.718 Personal history of other venous thrombosis and embolism; Z79.899 Other long term (current) drug therapy; Z90.710 Acquired absence of both cervix and uterus
CPT/HCPCS: 0042T; 36415; 36416; 70450; 70496; 70498; 70551; 71045; 80048; 80053; 80061; 80306; 80307; 81001; 82306; 82550; 83036; 83735; 83930; 84100; 84443; 84484; 85025; 85610; 85730; 93005; 93306; 94760; 95711; 95819; 96365; 96372; 96375; 96376; G0378; J0780; J1200; J1650; J2270; J2272; J2405; J3411; J3475; Q9967; S0028